=== PATIENT | male | born 1980 | race Two or more races ===

== ENCOUNTER 2017-11-02 23:52 | Inpatient (IN) | payer SELFPAY ==
[2017-11-03 00:28] LABS: ADD MAN DIFF? NO
[2017-11-03] MEDS ORDERED: CONTRAST GIVEN MC (00:30)
[2017-11-03 00:32] LABS: BASO % 0 % (0-3); EOS % 0 % (0-3); HEMATOCRIT 23.7 % (39.0-53.0); HEMOGLOBIN 8.1 g/dL (13.0-17.5); LYMPH # 1.5 x10^3/uL (1.0-4.8); LYMPH % 24 % (24-48); MEAN CORPUSCULAR HEMOGLOBIN 28 pg (25-35); MEAN CORPUSCULAR HGB CONC 34 g/dL (31-37); MEAN CORPUSCULAR VOLUME 82 fL (79-100); MONO # 0.4 x10^3/uL (0.0-1.1); MONO % 6 % (0-9); NEUT # 4.3 x10^3uL (1.8-7.7); NEUT % 69 % (31-73); PLATELET COUNT 120 x10^3/uL (140-400); RED BLOOD COUNT 2.88 x10^6/uL (4.30-5.70); RED CELL DISTRIBUTION WIDTH 14.2 % (11.5-14.5); WHITE BLOOD COUNT 6.1 x10^3/uL (4.0-11.0)
[2017-11-03 00:41] LABS: INR 1.1 (0.8-1.1); PARTIAL THROMBOPLASTIN TIME 30 SEC (24-38); PROTHROMBIN TIME PATIENT 13.2 SEC (11.7-14.0)
[2017-11-03 00:48] LABS: ANION GAP 8 (6-14); BLOOD UREA NITROGEN 18 mg/dL (8-26); BUN/CREATININE RATIO 20 (6-20); CALCIUM 7.7 mg/dL (8.5-10.1); CARBON DIOXIDE 29 mmol/L (21-32); CHLORIDE 106 mmol/L (98-107); CREATININE 0.9 mg/dL (0.7-1.3); GFR 93.9; GLUCOSE 151 mg/dL (70-99); SODIUM 143 mmol/L (136-145)
[2017-11-03] MEDS: IV NORMAL SALINE 1000ML BAG 1,000 ML IV ×4 (00:48→20:50)
[2017-11-03] MEDS: PANTOPRAZOLE IV PUSH 40 MG VIAL. IVP (00:49)
[2017-11-03] MEDS: PANTOPRAZOLE SODIUM IV DRIP 80 MG in IV NORMAL SALINE 100ML 100 ML IV ×2 (00:49→08:34)
[2017-11-03] MEDS: ONDANSETRON PF 4 MG/2 ML VIAL. IV (00:49)
[2017-11-03 00:57] LABS: ALBUMIN 2.8 g/dL (3.4-5.0); ALBUMIN/GLOBULIN RATIO 1.2 (1.0-1.7); ALK PHOS 43 U/L (46-116); ALT (SGPT) 73 U/L (16-63); AST (SGOT) 22 U/L (15-37); LIPASE 123 U/L (73-393); TOTAL BILIRUBIN 0.4 mg/dL (0.2-1.0); TOTAL PROTEIN 5.2 g/dL (6.4-8.2)
[2017-11-03 00:58] LABS: TROPONINI < 0.017 ng/mL (0.000-0.055)
[2017-11-03] MEDS: IOHEXOL 300 MG/ML 100ML VIAL. IV (01:13)
[2017-11-03 01:22] LABS: FECAL OB PT POSITIVE (NEG); NEG OBC FOB NEG; POS OBC FOB POS
[2017-11-03] MEDS ORDERED: ONDANSETRON PF 4 MG/2 ML VIAL. IV ×3 (01:45→12:45)
[2017-11-03] MEDS: OCTREOTIDE 100 MCG/ML VIAL IV (02:06)
[2017-11-03] MEDS: OCTREOTIDE 500 MCG in IV NORMAL SALINE 100ML 100 ML IV (02:08)
[2017-11-03 04:50] LABS: ADD MAN DIFF? NO
[2017-11-03 05:06] LABS: BASO % 0 % (0-3); EOS % 0 % (0-3); LYMPH # 1.3 x10^3/uL (1.0-4.8); LYMPH % 16 % (24-48); MEAN CORPUSCULAR HEMOGLOBIN 28 pg (25-35); MEAN CORPUSCULAR HGB CONC 34 g/dL (31-37); MEAN CORPUSCULAR VOLUME 83 fL (79-100); MONO # 0.4 x10^3/uL (0.0-1.1); MONO % 5 % (0-9); NEUT # 6.8 x10^3uL (1.8-7.7); NEUT % 80 % (31-73); PLATELET COUNT 103 x10^3/uL (140-400); RED BLOOD COUNT 2.42 x10^6/uL (4.30-5.70); RED CELL DISTRIBUTION WIDTH 14.6 % (11.5-14.5); WHITE BLOOD COUNT 8.6 x10^3/uL (4.0-11.0)
[2017-11-03 05:10] LABS: HEMOGLOBIN 6.9 g/dL (13.0-17.5)
[2017-11-03 07:28] LABS: IMMEDIATE SPIN CROSSMATCH 1 1
[2017-11-03 10:39] LABS: BILIRUBIN,URINE NEGATIVE (NEG); CLARITY,URINE CLEAR; COLOR,URINE YELLOW; GLUCOSE,URINE NEGATIVE (NEG); NITRITE,URINE NEGATIVE (NEG); PH,URINE 5.5; PROTEIN,URINE NEGATIVE (NEG-TRACE); UROBILINOGEN,URINE 0.2 mg/dL (0.2 mg/dL)
[2017-11-03 10:46] LABS: BACTERIA,URINE FEW /HPF (0-FEW); RBC,URINE 0 /HPF (0-2); SQUAMOUS EPITHELIAL CELL,UR OCC /LPF
[2017-11-03] MEDS ORDERED: MORPHINE SULFATE 2 MG/ML DISP.SYRIN. IV ×2 (11:15→12:45)
[2017-11-03] MEDS ORDERED: HYDROmorphone 2 MG/ML VIAL IV ×2 (11:15→12:45)
[2017-11-03] MEDS ORDERED: fentaNYL PF VIAL 100 MCG/2 ML VIAL IV ×4 (11:15→12:45)
[2017-11-03] MEDS ORDERED: PROCHLORPERAZINE 10 MG/2 ML VIAL. IV ×2 (11:15→12:45)
[2017-11-03] MEDS ORDERED: LIDOCAINE 1% PF 2 ML VIAL. ID ×2 (11:15→12:45)
[2017-11-03 11:48] LABS: ADD MAN DIFF? NO
[2017-11-03 11:52] LABS: BASO % 0 % (0-3); EOS % 1 % (0-3); HEMATOCRIT 22.2 % (39.0-53.0); HEMOGLOBIN 7.6 g/dL (13.0-17.5); LYMPH # 1.5 x10^3/uL (1.0-4.8); LYMPH % 22 % (24-48); MEAN CORPUSCULAR HEMOGLOBIN 29 pg (25-35); MEAN CORPUSCULAR HGB CONC 34 g/dL (31-37); MEAN CORPUSCULAR VOLUME 84 fL (79-100); MONO # 0.5 x10^3/uL (0.0-1.1); MONO % 7 % (0-9); NEUT # 4.8 x10^3uL (1.8-7.7); NEUT % 70 % (31-73); PLATELET COUNT 88 x10^3/uL (140-400); RED BLOOD COUNT 2.65 x10^6/uL (4.30-5.70); RED CELL DISTRIBUTION WIDTH 14.6 % (11.5-14.5); WHITE BLOOD COUNT 6.8 x10^3/uL (4.0-11.0)
[2017-11-03] MEDS: IV RINGERS,LACTATED 1000ML 1,000 ML IV ×2 (12:41→13:06)
[2017-11-03] MEDS ORDERED: MIDAZOLAM HCL/PF 5 MG/5 ML VIAL. (12:50)
[2017-11-03] MEDS ORDERED: PROPOFOL 20 ML IV ×2 (12:50→12:59)
[2017-11-03] MEDS ORDERED: LIDOCAINE 2% PF Vial for OR 5 ML VIAL. (12:50)
[2017-11-03] MEDS: METOCLOPRAMIDE HCL 10 MG/2 ML VIAL. IV ×2 (16:51→17:00)
[2017-11-03] MEDS: PANTOPRAZOLE 40 MG TABLET.DR. PO (17:27)
[2017-11-03 18:27] LABS: ADD MAN DIFF? NO
[2017-11-03 18:29] LABS: BASO % 0 % (0-3); EOS % 1 % (0-3); HEMATOCRIT 22.7 % (39.0-53.0); HEMOGLOBIN 7.8 g/dL (13.0-17.5); LYMPH # 1.4 x10^3/uL (1.0-4.8); LYMPH % 22 % (24-48); MEAN CORPUSCULAR HEMOGLOBIN 29 pg (25-35); MEAN CORPUSCULAR HGB CONC 34 g/dL (31-37); MEAN CORPUSCULAR VOLUME 84 fL (79-100); MONO # 0.6 x10^3/uL (0.0-1.1); MONO % 9 % (0-9); NEUT # 4.5 x10^3uL (1.8-7.7); NEUT % 69 % (31-73); PLATELET COUNT 91 x10^3/uL (140-400); RED BLOOD COUNT 2.72 x10^6/uL (4.30-5.70); WHITE BLOOD COUNT 6.6 x10^3/uL (4.0-11.0)
[2017-11-03] MEDS: MORPHINE SULFATE 2 MG/ML DISP.SYRIN. IV ×2 (19:26→22:06)
[2017-11-04 06:05] LABS: ADD MAN DIFF? NO
[2017-11-04 06:22] LABS: BASO % 0 % (0-3); EOS % 1 % (0-3); HEMATOCRIT 21.5 % (39.0-53.0); HEMOGLOBIN 7.2 g/dL (13.0-17.5); LYMPH # 1.1 x10^3/uL (1.0-4.8); LYMPH % 25 % (24-48); MEAN CORPUSCULAR HEMOGLOBIN 28 pg (25-35); MEAN CORPUSCULAR HGB CONC 34 g/dL (31-37); MEAN CORPUSCULAR VOLUME 84 fL (79-100); MONO # 0.4 x10^3/uL (0.0-1.1); MONO % 9 % (0-9); NEUT # 2.8 x10^3uL (1.8-7.7); NEUT % 66 % (31-73); PLATELET COUNT 86 x10^3/uL (140-400); RED BLOOD COUNT 2.57 x10^6/uL (4.30-5.70); RED CELL DISTRIBUTION WIDTH 14.9 % (11.5-14.5); WHITE BLOOD COUNT 4.3 x10^3/uL (4.0-11.0)
[2017-11-04 06:24] LABS: ANION GAP 3 (6-14); BLOOD UREA NITROGEN 14 mg/dL (8-26); CARBON DIOXIDE 31 mmol/L (21-32); CHLORIDE 110 mmol/L (98-107); CREATININE 0.8 mg/dL (0.7-1.3); GFR 107.6; GLUCOSE 97 mg/dL (70-99); POTASSIUM 3.5 mmol/L (3.5-5.1); SODIUM 144 mmol/L (136-145)
[2017-11-04] MEDS: PANTOPRAZOLE 40 MG TABLET.DR. PO (07:40)
[2017-11-04] MEDS: FLU VACC QS2017-18 (36MOS+)/PF 0.5 ML SYRINGE. VAX IM (11:00)
[2017-11-04 11:59] LABS: ADD MAN DIFF? NO
[2017-11-04 12:02] LABS: BASO % 0 % (0-3); EOS % 0 % (0-3); HEMATOCRIT 24.5 % (39.0-53.0); HEMOGLOBIN 8.2 g/dL (13.0-17.5); LYMPH # 1.1 x10^3/uL (1.0-4.8); LYMPH % 23 % (24-48); MEAN CORPUSCULAR HEMOGLOBIN 28 pg (25-35); MEAN CORPUSCULAR HGB CONC 34 g/dL (31-37); MEAN CORPUSCULAR VOLUME 83 fL (79-100); MONO # 0.3 x10^3/uL (0.0-1.1); MONO % 6 % (0-9); NEUT # 3.5 x10^3uL (1.8-7.7); NEUT % 71 % (31-73); PLATELET COUNT 98 x10^3/uL (140-400); RED BLOOD COUNT 2.94 x10^6/uL (4.30-5.70); RED CELL DISTRIBUTION WIDTH 14.8 % (11.5-14.5); WHITE BLOOD COUNT 4.9 x10^3/uL (4.0-11.0)
[2017-11-04 16:15] LABS: MRSA BY PCR Negative (Negative)
[2017-11-04] MEDS: ACETAMINOPHEN 325 MG TABLET. PO ×2 (17:13→23:48)
[2017-11-04 18:54] LABS: ADD MAN DIFF? NO
[2017-11-04 18:56] LABS: BASO % 0 % (0-3); EOS % 1 % (0-3); HEMATOCRIT 21.9 % (39.0-53.0); HEMOGLOBIN 7.6 g/dL (13.0-17.5); LYMPH # 1.2 x10^3/uL (1.0-4.8); LYMPH % 30 % (24-48); MEAN CORPUSCULAR HEMOGLOBIN 29 pg (25-35); MEAN CORPUSCULAR HGB CONC 35 g/dL (31-37); MEAN CORPUSCULAR VOLUME 85 fL (79-100); MONO # 0.3 x10^3/uL (0.0-1.1); MONO % 8 % (0-9); NEUT # 2.4 x10^3uL (1.8-7.7); NEUT % 61 % (31-73); PLATELET COUNT 102 x10^3/uL (140-400); RED BLOOD COUNT 2.59 x10^6/uL (4.30-5.70); RED CELL DISTRIBUTION WIDTH 14.9 % (11.5-14.5); WHITE BLOOD COUNT 3.9 x10^3/uL (4.0-11.0)
[2017-11-05 05:20] LABS: ADD MAN DIFF? NO
[2017-11-05 05:41] LABS: ANION GAP 8 (6-14); BLOOD UREA NITROGEN 13 mg/dL (8-26); CALCIUM 7.8 mg/dL (8.5-10.1); CARBON DIOXIDE 29 mmol/L (21-32); CHLORIDE 108 mmol/L (98-107); CREATININE 0.9 mg/dL (0.7-1.3); GFR 93.9; GLUCOSE 155 mg/dL (70-99); POTASSIUM 3.1 mmol/L (3.5-5.1); SODIUM 145 mmol/L (136-145)
[2017-11-05 05:43] LABS: BASO % 0 % (0-3); EOS % 1 % (0-3); HEMATOCRIT 21.6 % (39.0-53.0); HEMOGLOBIN 7.4 g/dL (13.0-17.5); LYMPH % 31 % (24-48); MEAN CORPUSCULAR HEMOGLOBIN 29 pg (25-35); MEAN CORPUSCULAR HGB CONC 34 g/dL (31-37); MEAN CORPUSCULAR VOLUME 84 fL (79-100); MONO # 0.2 x10^3/uL (0.0-1.1); MONO % 7 % (0-9); NEUT # 1.9 x10^3uL (1.8-7.7); NEUT % 60 % (31-73); PLATELET COUNT 95 x10^3/uL (140-400); RED BLOOD COUNT 2.56 x10^6/uL (4.30-5.70); WHITE BLOOD COUNT 3.1 x10^3/uL (4.0-11.0)
[2017-11-05] MEDS: PANTOPRAZOLE 40 MG TABLET.DR. PO (09:38)
[2017-11-06] MEDS: ACETAMINOPHEN 325 MG TABLET. PO (08:25)
[2017-11-06] MEDS: PANTOPRAZOLE 40 MG TABLET.DR. PO (08:25)
[2017-11-06] MEDS: FERROUS SULFATE ORAL 300 MG/5 ML SOLUTION. PO (17:00)
== END 2017-11-06 19:15 | disposition home or self-care (01) | DRG 391 ==
LOC: ER 23:52 → 6 SOUTH 11-04 16:49 → ED HOLD 11-03 01:13 → 1 WEST ICU 11-03 20:51
PROC: 0DB98ZX Excision of Duodenum, Via Natural or Artificial Opening Endoscopic, Diagnostic (ICD-10-PCS; principal; 2017-11-03 13:00)
PROC: 30233N1 Transfusion of Nonautologous Red Blood Cells into Peripheral Vein, Percutaneous Approach (ICD-10-PCS; 2017-11-03 13:13)
DX: K52.9 Noninfective gastroenteritis and colitis, unspecified (principal); K29.81 Duodenitis with bleeding; K28.4 Chronic or unspecified gastrojejunal ulcer with hemorrhage; D64.9 Anemia, unspecified; E78.5 Hyperlipidemia, unspecified; M43.16 Spondylolisthesis, lumbar region; Z83.3 Family history of diabetes mellitus; Z88.8 Allergy status to other drugs, medicaments and biological substances
CPT/HCPCS: 36415; 74177; 78278; 78290; 80048; 80053; 81001; 82274; 83690; 84484; 85025; 85610; 85730; 86850; 86900; 86901; 86920; 87641; 88305; 93005; 96374; 99291; 99291-25; A9512; A9560; C9113; J2250; J2270; J2354; J2405; J2704; J2765; J7030; J7120; P9016; Q9967

== ENCOUNTER 2017-11-28 13:16 | Emergency (ER) | payer SELFPAY ==
[2017-11-28 14:20] LABS: BILIRUBIN,URINE NEGATIVE (NEG); CLARITY,URINE CLEAR; COLOR,URINE YELLOW; GLUCOSE,URINE NEGATIVE (NEG); NITRITE,URINE NEGATIVE (NEG); PROTEIN,URINE NEGATIVE (NEG-TRACE); UROBILINOGEN,URINE 0.2 mg/dL (0.2 mg/dL)
[2017-11-28] MEDS: IV NORMAL SALINE 1000ML BAG 1,000 ML IV ×2 (14:23)
[2017-11-28] MEDS: ASPIRIN CHEWABLE 81 MG TABLET. PO ×2 (14:23)
[2017-11-28] MEDS: fentaNYL PF VIAL 100 MCG/2 ML VIAL IV ×2 (14:23)
[2017-11-28 14:34] LABS: ADD MAN DIFF? NO
[2017-11-28 14:36] LABS: BASO % 0 % (0-3); EOS % 0 % (0-3); HEMATOCRIT 30.2 % (39.0-53.0); HEMOGLOBIN 9.7 g/dL (13.0-17.5); LYMPH # 0.7 x10^3/uL (1.0-4.8); LYMPH % 18 % (24-48); MEAN CORPUSCULAR HEMOGLOBIN 26 pg (25-35); MEAN CORPUSCULAR HGB CONC 32 g/dL (31-37); MEAN CORPUSCULAR VOLUME 82 fL (79-100); MONO # 0.3 x10^3/uL (0.0-1.1); MONO % 9 % (0-9); NEUT # 2.7 x10^3uL (1.8-7.7); NEUT % 73 % (31-73); PLATELET COUNT 145 x10^3/uL (140-400); RED BLOOD COUNT 3.68 x10^6/uL (4.30-5.70); RED CELL DISTRIBUTION WIDTH 14.3 % (11.5-14.5); WHITE BLOOD COUNT 3.7 x10^3/uL (4.0-11.0)
[2017-11-28 14:37] LABS: BACTERIA,URINE 0 /HPF (0-FEW); RBC,URINE 0 /HPF (0-2); SQUAMOUS EPITHELIAL CELL,UR FEW /LPF; WBC,URINE OCC /HPF (0-4)
[2017-11-28 14:48] LABS: D-DIMER < 0.27 ug/mlFEU (0.00-0.50)
[2017-11-28 14:51] LABS: ANION GAP 7 (6-14); BLOOD UREA NITROGEN 11 mg/dL (8-26); BUN/CREATININE RATIO 14 (6-20); CALCIUM 9.1 mg/dL (8.5-10.1); CARBON DIOXIDE 30 mmol/L (21-32); CHLORIDE 105 mmol/L (98-107); CREATININE 0.8 mg/dL (0.7-1.3); GFR 107.6; GLUCOSE 101 mg/dL (70-99); POTASSIUM 3.7 mmol/L (3.5-5.1); SODIUM 142 mmol/L (136-145)
[2017-11-28 14:56] LABS: ALBUMIN 3.4 g/dL (3.4-5.0); ALK PHOS 63 U/L (46-116); ALT (SGPT) 99 U/L (16-63); AST (SGOT) 36 U/L (15-37); LIPASE 136 U/L (73-393); MAGNESIUM 2.1 mg/dL (1.8-2.4); TOTAL BILIRUBIN 0.8 mg/dL (0.2-1.0); TOTAL PROTEIN 6.8 g/dL (6.4-8.2)
[2017-11-28 15:00] LABS: TROPONINI < 0.017 ng/mL (0.000-0.055)
[2017-11-28 15:05] LABS: INFLUENZA A PATIENT NEGATIVE (NEGATIVE); INFLUENZA B PATIENT NEGATIVE (NEGATIVE); OBC FLU VALID
[2017-11-28 15:07] LABS: CKMB MASS < 0.5 ng/mL (0.0-3.6); CREATINE KINASE 65 U/L (39-308)
[2017-11-28 15:07] LABS: NT-PRO BNP 22 pg/mL (0-124)
== END 2017-11-28 16:40 | disposition home or self-care (01) ==
LOC: ER 13:16
DX: R07.89 Other chest pain (principal); D50.0 Iron deficiency anemia secondary to blood loss (chronic); R06.02 Shortness of breath; R20.0 Anesthesia of skin; Z88.1 Allergy status to other antibiotic agents
CPT/HCPCS: 36415; 71046; 80053; 81001; 82553; 83690; 83735; 83880; 84484; 85025; 85379; 87804; 87804-59; 93005; 96361; 96374; 99285-25; J3010; J7030

== ENCOUNTER 2018-12-13 15:29 | Inpatient (IN) | payer SELFPAY ==
[~2018-12-13] VITALS: Ht 167.6 cm; Wt 71.3 kg
[~2018-12-13 15:29] MED LIST: ACET325T9 PO; FERR325T14 PO; MULT1TAB52 PO; PANT40TA3 PO
[2018-12-13 16:49] LABS: BASO % 0 % (0-3); EOS % 1 % (0-3); HEMATOCRIT 41.8 % (39.0-53.0); HEMOGLOBIN 14.5 g/dL (13.0-17.5); LYMPH # 1.4 x10^3/uL (1.0-4.8); LYMPH % 26 % (24-48); MEAN CORPUSCULAR HEMOGLOBIN 30 pg (25-35); MEAN CORPUSCULAR HGB CONC 35 g/dL (31-37); MEAN CORPUSCULAR VOLUME 85 fL (79-100); MONO # 0.4 x10^3/uL (0.0-1.1); MONO % 8 % (0-9); NEUT # 3.5 x10^3uL (1.8-7.7); NEUT % 65 % (31-73); PLATELET COUNT 124 x10^3/uL (140-400); RED BLOOD COUNT 4.91 x10^6/uL (4.30-5.70); RED CELL DISTRIBUTION WIDTH 13.2 % (11.5-14.5); WHITE BLOOD COUNT 5.4 x10^3/uL (4.0-11.0)
[2018-12-13 16:59] LABS: PROTHROMBIN TIME PATIENT 13.7 SEC (11.7-14.0)
[2018-12-13 17:06] LABS: CALCIUM 8.3 mg/dL (8.5-10.1); GFR 82.8
[2018-12-13 17:11] LABS: ALBUMIN 3.3 g/dL (3.4-5.0); TOTAL BILIRUBIN 1.2 mg/dL (0.2-1.0); TOTAL PROTEIN 6.6 g/dL (6.4-8.2)
[2018-12-13 17:14] LABS: FECAL OB PT POSITIVE (NEG)
[2018-12-13] MEDS ORDERED: IOHEXOL 300 MG/ML 100ML VIAL. IV ONE (17:45)
[2018-12-13] MEDS ORDERED: CONTRAST GIVEN. MC PRN (18:00)
--- NOTE | 2018-12-13 18:49 | PHYS DOC ---
Past Medical History Past Medical History: Anemia, GERD, GI Bleed Past Surgical History: Other Additional Past Surgical Histo: COLONOSCOPY Alcohol Use: Sober Drug Use: None Adult General Chief Complaint Chief Complaint: RECTAL BLEED HPI HPI Patient is a 38 year old MALE presented to the ER today for evaluation of lower abdominal pain with rectal bleeding off and on since yesterday. Patient denied any fever, no nausea, or vomiting. Patient is not on any blood thinner. Review of Systems Review of Systems Constitutional: Denies fever or chills [] Eyes: Denies change in visual acuity, redness, or eye pain [] HENT: Denies nasal congestion or sore throat [] Respiratory: Denies cough or shortness of breath [] Cardiovascular: No additional information not addressed in HPI [] GI: Positive for abdominal pain and rectal bleeding. NO nausea, vomiting, bloody stools or diarrhea [] : Denies dysuria or hematuria [] Musculoskeletal: Denies back pain or joint pain [] Integument: Denies rash or skin lesions [] Neurologic: Denies headache, focal weakness or sensory changes [] Endocrine: Denies polyuria or polydipsia [] All other systems were reviewed and found to be within normal limits, except as documented in this note. Current Medications Current Medications Current Medications Medications (Trade) Dose Ordered Sig/Fahad Start Time Stop Time Status Last Admin Dose Admin Info (CONTRAST GIVEN -- Rx MONITORING) 1 each PRN DAILY PRN 12/13/18 18:00 12/15/18 17:59 Iohexol (Omnipaque 300 Mg/ml) 75 ml 1X ONCE 12/13/18 17:45 12/13/18 17:46 DC 12/13/18 18:17 75 ML Allergies Allergies Allergies Coded Allergies Type Severity Reaction Last Updated Verified ciprofloxacin Allergy Intermediate 11/06/17 Yes Physical Exam Physical Exam Constitutional: Well developed, well nourished, no acute distress, non-toxic appearance. [] HENT: Normocephalic, atraumatic, bilateral external ears normal, oropharynx moist, no oral exudates, nose normal. [] Eyes: PERRLA, EOMI, conjunctiva normal, no discharge. [] Neck: Normal range of motion, no tenderness, supple, no stridor. [] Cardiovascular:Heart rate regular rhythm, no murmur [] Lungs & Thorax: Bilateral breath sounds clear to auscultation [] Abdomen: Bowel sounds normal, soft, There is tenderness to palpation in suprapubic area, no masses, no pulsatile masses. RECTAL EXAM: NO EXTERNAL OR INTERNAL HEMORRHOIDS APPRECIATED, GROSS BLOOD PRESENT AT FINGER TIP ON DIGITAL EXAM. Skin: Warm, dry, no erythema, no rash. [] Back: No tenderness, no CVA tenderness. [] Extremities: No tenderness, no cyanosis, no clubbing, ROM intact, no edema. [] Neurologic: Alert and oriented X 3, normal motor function, normal sensory function, no focal deficits noted. [] Psychologic: Affect normal, judgement normal, mood normal. [] Current Patient Data Vital Signs Vital Signs Date Time Temp Pulse Resp B/P (MAP) Pulse Ox O2 Delivery O2 Flow Rate FiO2 12/13/18 17:30 68 18 109/69 (82) 97 Room Air 12/13/18 16:00 98.8 98.8 Lab Values Laboratory Tests Test 12/13/18 16:35 12/13/18 17:00 White Blood Count 5.4 x10^3/uL (4.0-11.0) Red Blood Count 4.91 x10^6/uL (4.30-5.70) Hemoglobin 14.5 g/dL (13.0-17.5) Hematocrit 41.8 % (39.0-53.0) Mean Corpuscular Volume 85 fL (79-100) Mean Corpuscular Hemoglobin 30 pg (25-35) Mean Corpuscular Hemoglobin Concent 35 g/dL (31-37) Red Cell Distribution Width 13.2 % (11.5-14.5) Platelet Count 124 x10^3/uL (140-400) L Neutrophils (%) (Auto) 65 % (31-73) Lymphocytes (%) (Auto) 26 % (24-48) Monocytes (%) (Auto) 8 % (0-9) Eosinophils (%) (Auto) 1 % (0-3) Basophils (%) (Auto) 0 % (0-3) Neutrophils # (Auto) 3.5 x10^3uL (1.8-7.7) Lymphocytes # (Auto) 1.4 x10^3/uL (1.0-4.8) Monocytes # (Auto) 0.4 x10^3/uL (0.0-1.1) Eosinophils # (Auto) 0.0 x10^3/uL (0.0-0.7) Basophils # (Auto) 0.0 x10^3/uL (0.0-0.2) Prothrombin Time 13.7 SEC (11.7-14.0) Prothrombin Time INR 1.1 (0.8-1.1) PTT 33 SEC (24-38) Sodium Level 141 mmol/L (136-145) Potassium Level 4.0 mmol/L (3.5-5.1) Chloride Level 103 mmol/L (98-107) Carbon Dioxide Level 30 mmol/L (21-32) Anion Gap 8 (6-14) Blood Urea Nitrogen 16 mg/dL (8-26) Creatinine 1.0 mg/dL (0.7-1.3) Estimated GFR (Cockcroft-Gault) 82.8 BUN/Creatinine Ratio 16 (6-20) Glucose Level 106 mg/dL (70-99) H Calcium Level 8.3 mg/dL (8.5-10.1) L Total Bilirubin 1.2 mg/dL (0.2-1.0) H Aspartate Amino Transferase (AST) 16 U/L (15-37) Alanine Aminotransferase (ALT) 37 U/L (16-63) Alkaline Phosphatase 59 U/L (46-116) Total Protein 6.6 g/dL (6.4-8.2) Albumin 3.3 g/dL (3.4-5.0) L Albumin/Globulin Ratio 1.0 (1.0-1.7) Stool Occult Blood Positive (NEG) Laboratory Tests 12/13/18 16:35 Laboratory Tests 12/13/18 16:35 EKG EKG [] Radiology/Procedures Radiology/Procedures [][facility] [address] [place], [place] [id number] IMAGING REPORT Signed PATIENT: LAKHWINDER MOSQUERA ACCOUNT: [id number] : 1980 LOCATION: ER AGE: 38 SEX: M EXAM STATUS: REG ER ORD. PHYSICIAN: AYLIN SAEZ DO REASON: ABDOMINAL PAIN, OMNI 300, 75ml PROCEDURE: CT ABD PELV W/ IV CONTRST ONLY CT abdomen and pelvis with contrast 12/13/2018 Clinical indication: Abdominal pain. COMPARISON: CT abdomen pelvis 11/03/2017. TECHNIQUE: Multiple CT images of the abdomen and pelvis were obtained following the intravenous administration of 75 mL Omnipaque 300. *One or more of the following individualized dose reduction techniques were utilized for this examination: 1. Automated exposure control. 2. Adjustment of the mA and/or kV according to patient size. 3. Use of iterative reconstruction technique. FINDINGS: Heart size is normal. There is a stable 0.3 cm noncalcified pulmonary nodule in the posterior right lung base series 2/image 7. Tiny, 0.3 cm noncalcified pulmonary nodule in the left lung base series 2/image 11. Liver, gallbladder, spleen, adrenal glands, pancreas, and kidneys are unremarkable. Abdominal aorta normal in caliber. Major portal veins are patent. No retroperitoneal or mesenteric lymphadenopathy. There is mild sequential thickening of the duodenal with no adjacent stranding. Small and large bowel loops are normal in caliber without obstruction. Appendix is normal in appearance. Mild fecalized contents in the mid and distal small bowel loops without focal dilatation or mesenteric leaflet edema. Urinary bladder, prostate and seminal vesicles are unremarkable. No iliac or inguinal lymphadenopathy. Bilateral L5 spondylolysis and grade 1 anterolisthesis. IMPRESSION: 1. Mild duodenal mural thickening without adjacent stranding, indeterminate between pseudothickening from incomplete distention versus nonspecific duodenitis. 2. Fecalized contents of the mid to distal small bowel loops, may represent delayed transit. 3. Two subcentimeter noncalcified pulmonary nodules in the lung bases. In a low-risk patient, no additional follow-up is necessary. In a high-risk patient. Follow-up CT chest is recommended. Electronically signed by: Reyna Pace MD (12/13/2018 6:54 PM) [facility] DICTATED and SIGNED BY: REYNA PACE MD DATE: 12/13/18 526 Course & Med Decision Making Course & Med Decision Making Pertinent Labs and Imaging studies reviewed. (See chart for details) [] Dragon Disclaimer Dragluis daniel Disclaimer This electronic medical record was generated, in whole or in part, using a voice recognition dictation system. Departure Departure Impression: Primary Impression: Rectal bleeding Disposition: ADMITTED INPATIENT Admitting Physician: Addis Elizabeth Condition: STABLE Referrals: NO PCP (PCP) SAEZ,PETER T DO Dec 13, 2018 18:49
--- NOTE | 2018-12-13 18:57 | RAD ---
CT abdomen and pelvis with contrast 12/13/2018 Clinical indication: Abdominal pain. COMPARISON: CT abdomen pelvis 11/03/2017. TECHNIQUE: Multiple CT images of the abdomen and pelvis were obtained following the intravenous administration of 75 mL Omnipaque 300. *One or more of the following individualized dose reduction techniques were utilized for this examination: 1. Automated exposure control. 2. Adjustment of the mA and/or kV according to patient size. 3. Use of iterative reconstruction technique. FINDINGS: Heart size is normal. There is a stable 0.3 cm noncalcified pulmonary nodule in the posterior right lung base series 2/image 7. Tiny, 0.3 cm noncalcified pulmonary nodule in the left lung base series 2/image 11. Liver, gallbladder, spleen, adrenal glands, pancreas, and kidneys are unremarkable. Abdominal aorta normal in caliber. Major portal veins are patent. No retroperitoneal or mesenteric lymphadenopathy. There is mild sequential thickening of the duodenal with no adjacent stranding. Small and large bowel loops are normal in caliber without obstruction. Appendix is normal in appearance. Mild fecalized contents in the mid and distal small bowel loops without focal dilatation or mesenteric leaflet edema. Urinary bladder, prostate and seminal vesicles are unremarkable. No iliac or inguinal lymphadenopathy. Bilateral L5 spondylolysis and grade 1 anterolisthesis. IMPRESSION: 1. Mild duodenal mural thickening without adjacent stranding, indeterminate between pseudothickening from incomplete distention versus nonspecific duodenitis. 2. Fecalized contents of the mid to distal small bowel loops, may represent delayed transit. 3. Two subcentimeter noncalcified pulmonary nodules in the lung bases. In a low-risk patient, no additional follow-up is necessary. In a high-risk patient. Follow-up CT chest is recommended. Electronically signed by: Radhames Pace MD (12/13/2018 6:54 PM) [facility]
[2018-12-13] MEDS ORDERED: ONDANSETRON PF 4 MG/2 ML VIAL. IV PRN (19:15)
[2018-12-13 21:00] VITALS: BP 127/81
[2018-12-13] MEDS ORDERED: CIPROFLOXACIN HCL 250 MG TABLET. PO SCH (21:00)
--- NOTE | 2018-12-13 21:00 | NUR ---
The patient, LAKHWINDER MOSQUERA, 38 y/o, M admitted by FOREIGN DESAI MD, was given written information regarding hospital policies, unit procedures and contact persons; pt arrived to unit from ED via WC. Pt's primary language Ecuadorean, the blue language line was offered but pt declined and preferred family to help interpret. Pt admission assessment complete, admit packet reviewed, and plan of care discussed. Upon admission, pt's VSS, allergies verified, and valuables were checked and left in room with pt. Pt in bed, call light within reach and family at bedside, will continue to monitor.
--- NOTE | 2018-12-13 21:37 | PDOC1 ---
History and Physical Date of Admission Date of Admission DATE: 12/13/18 TIME: 21:33 History of Present Illness History of Present Illness Mr. Castro, is a 38 year old MALE, armenian speaking only admit for acutely worsening abdominal pain, and new blood per rectum no priro abd problems, no sick contacts, no travel, no meds, no hospitalization he works construction, with concrete. his stool has been brown with bright red in it. Past Medical History Cardiovascular: No pertinent hx Pulmonary: No pertinent hx GI: No pertinent hx Past Surgical History Past Surgical History: No pertinent history Family History Family History: No Significant Social History Smoke: No ALCOHOL: other Drugs: None Current Problem List Problem List Problems Medical Problems: (1) Rectal bleeding Status: Acute Current Medications Current Medications Current Medications Iohexol (Omnipaque 300 Mg/ml) 75 ml 1X ONCE IV Last administered on 12/13/18at 18:17; Start 12/13/18 at 17:45; Stop 12/13/18 at 17:46; Status DC Info (CONTRAST GIVEN -- Rx MONITORING) 1 each PRN DAILY PRN MC SEE COMMENTS; Start 12/13/18 at 18:00; Stop 12/15/18 at 17:59 Ondansetron HCl (Zofran) 4 mg PRN Q8HRS PRN IV NAUSEA/VOMITING; Start 12/13/18 at 19:15; Stop 12/14/18 at 19:14 Sodium Chloride 1,000 ml @ 75 mls/hr [id number] IV ; Start 12/13/18 at 19:08; Stop 12/14/18 at 19:07 Metronidazole (Flagyl) 500 mg Q8HRS PO ; Start 12/14/18 at 06:00 Metronidazole 100 ml @ 100 mls/hr 1X ONCE IV ; Start 12/13/18 at 21:00; Stop 12/13/18 at 21:59 Ciprofloxacin (Cipro) 500 mg BID PO ; Start 12/13/18 at 21:00; Stop 12/13/18 at 21:13; Status DC Active Scripts Active Multivitamins (Multivitamin) 1 Each Tablet 1 Tab PO DAILY Tylenol (Acetaminophen) 325 Mg Tablet 1-2 Tab PO Q4-6HRS PRN Reported Ferrous Sulfate 325 Mg Tablet 65 Mg PO DAILY Protonix (Pantoprazole Sodium) 40 Mg Tablet.dr 1 Tab PO DAILY Allergies Allergies: Coded Allergies: ciprofloxacin (Verified Allergy, Intermediate, 11/06/17) ROS General: No: Chills, Night Sweats, Fatigue, Malaise, Appetite, Other PSYCHOLOGICAL ROS: No: Anxiety, Behavioral Disorder, Concentration difficultie , Decreased libido, Depression, Disorientation, Hallucinations, Hostility, Irritablity, Memory difficulties, Mood Swings, Obsessive thoughts, Physical abuse, Sexual abuse, Sleep disturbances, Suicidal ideation, Other Eyes: No Blurry vision, No Decreased vision, No Double vision, No Dry eyes, No Excessive tearing, No Eye Pain, No Itchy Eyes, No Loss of vision, No Photophobia , No Scotomata, No Uses contacts, No Uses glasses, No Other HEENT: No: Heacaches, Visual Changes, Hearing change, Nasal congestion, Nasal discharge, Oral lesions, Sinus pain, Sore Throat, Epistaxis, Sneezing, Snoring, Tinnitus, Vertigo, Vocal changes, Other Respiratory: No: Cough, Hemoptysis, Orthopnea, Pleuritic Pain, Shortness of breath, SOB with excertion, Sputum Changes, Stridor, Tachypnea, Wheezing, Other Cardiovascular: No Chest Pain, No Palpitations, No Orthopnea, No Paroxysmal Noc. Dyspnea, No Edema, No Lt Headedness, No Other Gastrointestinal: Yes Nausea, Yes Abdominal Pain, Yes Diarrhea, Yes Hematochezia; No Constipation, No Melena, No Other Genitourinary: No Dysuria, No Frequency, No Incontinence, No Hematuria, No Retention, No Discharge, No Urgency, No Pain, No Flank Pain, No Other, No , No , No , No , No , No , No Musculoskeletal: No Gait Disturbance, No Joint Pain, No Joint Stiffness, No Joint Swelling, No Muscle Pain, No Muscular Weakness, No Pain In:, No Swelling In:, No Other Neurological: No Behavorial Changes, No Bowel/Bladder ControlChng, No Confusion , No Dizziness, No Gait Disturbance, No Headaches, No Impaired Coord/balance, No Memory Loss, No Numbness/Tingling, No Seizures, No Speech Problems, No Tremors, No Visual Changes, No Weakness, No Other Skin: No Dry Skin, No Eczema, No Hair Changes, No Lumps, No Mole Changes, No Mottling, No Nail Changes, No Pruritus, No Rash, No Skin Lesion Changes, No Other, No Acne Physical Exam General: Alert, Oriented X3, Cooperative, mild distress HEENT: Atraumatic, PERRLA Lungs: Clear to auscultation Heart: S1S2 Abdomen: Normal bowel sounds, Soft (mild tender, no guarding, no rebound) Rectal Exam: not examined Extremities: No clubbing, No edema Skin: No rashes, No breakdown, No significant lesion Neuro: Normal speech, Normal tone, Cranial nerves 3-12 NL Psych/Mental Status: Mood NL Vitals Vitals Vital Signs Date Time Temp Pulse Resp B/P (MAP) Pulse Ox O2 Delivery O2 Flow Rate FiO2 12/13/18 19:30 70 16 121/78 (92) 98 Room Air 12/13/18 16:00 98.8 98.8 Labs Labs Laboratory Tests Test 12/13/18 16:35 12/13/18 17:00 White Blood Count 5.4 x10^3/uL (4.0-11.0) Red Blood Count 4.91 x10^6/uL (4.30-5.70) Hemoglobin 14.5 g/dL (13.0-17.5) Hematocrit 41.8 % (39.0-53.0) Mean Corpuscular Volume 85 fL (79-100) Mean Corpuscular Hemoglobin 30 pg (25-35) Mean Corpuscular Hemoglobin Concent 35 g/dL (31-37) Red Cell Distribution Width 13.2 % (11.5-14.5) Platelet Count 124 x10^3/uL (140-400) Neutrophils (%) (Auto) 65 % (31-73) Lymphocytes (%) (Auto) 26 % (24-48) Monocytes (%) (Auto) 8 % (0-9) Eosinophils (%) (Auto) 1 % (0-3) Basophils (%) (Auto) 0 % (0-3) Neutrophils # (Auto) 3.5 x10^3uL (1.8-7.7) Lymphocytes # (Auto) 1.4 x10^3/uL (1.0-4.8) Monocytes # (Auto) 0.4 x10^3/uL (0.0-1.1) Eosinophils # (Auto) 0.0 x10^3/uL (0.0-0.7) Basophils # (Auto) 0.0 x10^3/uL (0.0-0.2) Prothrombin Time 13.7 SEC (11.7-14.0) Prothromb Time International Ratio 1.1 (0.8-1.1) Activated Partial Thromboplast Time 33 SEC (24-38) Sodium Level 141 mmol/L (136-145) Potassium Level 4.0 mmol/L (3.5-5.1) Chloride Level 103 mmol/L (98-107) Carbon Dioxide Level 30 mmol/L (21-32) Anion Gap 8 (6-14) Blood Urea Nitrogen 16 mg/dL (8-26) Creatinine 1.0 mg/dL (0.7-1.3) Estimated GFR (Cockcroft-Gault) 82.8 BUN/Creatinine Ratio 16 (6-20) Glucose Level 106 mg/dL (70-99) Calcium Level 8.3 mg/dL (8.5-10.1) Total Bilirubin 1.2 mg/dL (0.2-1.0) Aspartate Amino Transf (AST/SGOT) 16 U/L (15-37) Alanine Aminotransferase (ALT/SGPT) 37 U/L (16-63) Alkaline Phosphatase 59 U/L (46-116) Total Protein 6.6 g/dL (6.4-8.2) Albumin 3.3 g/dL (3.4-5.0) Albumin/Globulin Ratio 1.0 (1.0-1.7) Stool Occult Blood Positive (NEG) Laboratory Tests Test 12/13/18 16:35 12/13/18 17:00 White Blood Count 5.4 x10^3/uL (4.0-11.0) Red Blood Count 4.91 x10^6/uL (4.30-5.70) Hemoglobin 14.5 g/dL (13.0-17.5) Hematocrit 41.8 % (39.0-53.0) Mean Corpuscular Volume 85 fL (79-100) Mean Corpuscular Hemoglobin 30 pg (25-35) Mean Corpuscular Hemoglobin Concent 35 g/dL (31-37) Red Cell Distribution Width 13.2 % (11.5-14.5) Platelet Count 124 x10^3/uL (140-400) Neutrophils (%) (Auto) 65 % (31-73) Lymphocytes (%) (Auto) 26 % (24-48) Monocytes (%) (Auto) 8 % (0-9) Eosinophils (%) (Auto) 1 % (0-3) Basophils (%) (Auto) 0 % (0-3) Neutrophils # (Auto) 3.5 x10^3uL (1.8-7.7) Lymphocytes # (Auto) 1.4 x10^3/uL (1.0-4.8) Monocytes # (Auto) 0.4 x10^3/uL (0.0-1.1) Eosinophils # (Auto) 0.0 x10^3/uL (0.0-0.7) Basophils # (Auto) 0.0 x10^3/uL (0.0-0.2) Prothrombin Time 13.7 SEC (11.7-14.0) Prothromb Time International Ratio 1.1 (0.8-1.1) Activated Partial Thromboplast Time 33 SEC (24-38) Sodium Level 141 mmol/L (136-145) Potassium Level 4.0 mmol/L (3.5-5.1) Chloride Level 103 mmol/L (98-107) Carbon Dioxide Level 30 mmol/L (21-32) Anion Gap 8 (6-14) Blood Urea Nitrogen 16 mg/dL (8-26) Creatinine 1.0 mg/dL (0.7-1.3) Estimated GFR (Cockcroft-Gault) 82.8 BUN/Creatinine Ratio 16 (6-20) Glucose Level 106 mg/dL (70-99) Calcium Level 8.3 mg/dL (8.5-10.1) Total Bilirubin 1.2 mg/dL (0.2-1.0) Aspartate Amino Transf (AST/SGOT) 16 U/L (15-37) Alanine Aminotransferase (ALT/SGPT) 37 U/L (16-63) Alkaline Phosphatase 59 U/L (46-116) Total Protein 6.6 g/dL (6.4-8.2) Albumin 3.3 g/dL (3.4-5.0) Albumin/Globulin Ratio 1.0 (1.0-1.7) Stool Occult Blood Positive (NEG) VTE Prophylaxis Ordered VTE Prophylaxis Devices: No VTE Pharmacological Prophylaxi: Contraindicated Assessment/Plan Assessment/Plan acute colitis, no prior hx check cx, start flagyl, no leukocytosis, appears well painful abdomen, pain meds admit, consult GI FOREIGN DESAI MD Dec 13, 2018 21:36
[2018-12-13] MEDS ORDERED: oxyCODONE/APAP 5/325 1 TAB TABLET PO PRN (21:45)
[2018-12-13] MEDS ORDERED: MORPHINE SULFATE 4 MG/ML VIAL. IV PRN (21:45)
[2018-12-13] MEDS: IV NORMAL SALINE 1000ML BAG 1,000 ML IV SCH (21:49)
[2018-12-13 22:30] LABS: HEMATOCRIT 41.2 % (39.0-53.0); RED BLOOD COUNT 4.77 x10^6/uL (4.30-5.70); RED CELL DISTRIBUTION WIDTH 13.2 % (11.5-14.5); WHITE BLOOD COUNT 6.4 x10^3/uL (4.0-11.0)
[2018-12-13 23:00] VITALS: BP 113/79
[2018-12-14 00:10] LABS: BILIRUBIN,URINE NEGATIVE (NEG); CLARITY,URINE CLEAR; COLOR,URINE YELLOW; NITRITE,URINE NEGATIVE (NEG); PH,URINE 5.5; PROTEIN,URINE NEGATIVE (NEG-TRACE); UROBILINOGEN,URINE 0.2 mg/dL (0.2 mg/dL)
[2018-12-14 00:18] LABS: BACTERIA,URINE 0 /HPF (0-FEW); RBC,URINE 0 /HPF (0-2); SQUAMOUS EPITHELIAL CELL,UR OCC /LPF; WBC,URINE 0 /HPF (0-4)
[2018-12-14 03:00] VITALS: BP 127/81
[2018-12-14] MEDS: metroNIDAZOLE 500 MG TABLET PO SCH ×3 (06:00→21:46)
[2018-12-14 06:43] LABS: ALBUMIN 3.1 g/dL (3.4-5.0); CALCIUM 8.3 mg/dL (8.5-10.1); GFR 82.8; POTASSIUM 4.1 mmol/L (3.5-5.1); TOTAL BILIRUBIN 1.3 mg/dL (0.2-1.0); TOTAL PROTEIN 6.1 g/dL (6.4-8.2)
[2018-12-14 06:59] LABS: BASO % 0 % (0-3); EOS # 0.1 x10^3/uL (0.0-0.7); EOS % 1 % (0-3); HEMATOCRIT 41.4 % (39.0-53.0); HEMOGLOBIN 14.2 g/dL (13.0-17.5); LYMPH % 34 % (24-48); MEAN CORPUSCULAR HEMOGLOBIN 30 pg (25-35); MEAN CORPUSCULAR HGB CONC 34 g/dL (31-37); MEAN CORPUSCULAR VOLUME 86 fL (79-100); MONO # 0.5 x10^3/uL (0.0-1.1); MONO % 8 % (0-9); NEUT # 3.3 x10^3uL (1.8-7.7); NEUT % 57 % (31-73); PLATELET COUNT 102 x10^3/uL (140-400); RED BLOOD COUNT 4.82 x10^6/uL (4.30-5.70); RED CELL DISTRIBUTION WIDTH 13.2 % (11.5-14.5); WHITE BLOOD COUNT 5.8 x10^3/uL (4.0-11.0)
[2018-12-14 07:00] VITALS: BP 123/77
[2018-12-14] MEDS: IV NORMAL SALINE 1000ML BAG 1,000 ML IV SCH ×2 (08:44→12:32)
--- NOTE | 2018-12-14 08:55 | NUR ---
SW reviewed pt's medical chart and evaluated for potential dc needs. Pt is from home and was admitted for rectal bleeding. PT/OT has not been ordered and there are no dc needs at this time. SW will be available if pt's condition changes and there is a need for services.
--- NOTE | 2018-12-14 09:43 | PDOC2 ---
GI CONSULT Reason For Consult: Rectal bleeding HPI: HPI: 38 y/o Upper Sorbian-speaking male - translation help from his friend Bronwyn via cell phone. He reports seeing red and black blood w/ stool ("a little diarrhea " and "some small hard pieces") once on Friday morning and once on Friday morning. We saw him in 10/2017 for h/o anemia and black watery stools. He was apparently at ~3 months before for same symptoms, reports normal EGD and colonoscopy there. Records were requested but not received. At that time, CT showed small metallic densities in RLQ (?previous embolization). Then had normal EGD w/ Dr. Garcia here. Bleeding scan initially negative, then delayed images noted "increased radiotracer in the right hemiabdomen in the region of the ascending colon with additional images demonstrating slight transit into the transverse colon consistent with GI bleed" but exact location and timing of the bleed could not be assessed due to the delayed technique. Recs to follow-up at at that time. H/o GERD on omeprazole QD, no n/v, no dysphagia, no abd pain, no weight loss. Says also takes iron QD and uses hemorrhoid creams. Says no issues w/ bleeding since he was seen here in 10/2017. Hgb is 14.2 (from 14.5) and fecal occult was positive Plt 102, bili 1.3. On CT : mild mural thickening of duodenum (indeterminate between pseudothickening from incomplete distention versus nonspecific duodenitis). Getting antibiotics. Has stool studies ordered. Since I saw him earlier this morning, plans to start clear liquids and request records from again. PMH: PMH: HLD, anemia/GI bleeding FH: Family History: No pertinent hx Social History: Smoke: No ALCOHOL: other (sober 7-8 years) Drugs: None ROS: GEN: Denies fevers, chills, sweats HEENT: Denies blurred vision, sore throat CV: Denies chest pain RESP: Denies shortness of air, cough GI: Per HPI : Denies hematuria, dysuria ENDO: Denies weight changes NEURO: Denies confusion, dizziness MSK: Denies weakness, joint pain/swelling SKIN: Denies jaundice, pruritus Vitals: Vitals: Vital Signs Date Time Temp Pulse Resp B/P (MAP) Pulse Ox O2 Delivery O2 Flow Rate FiO2 12/14/18 08:20 Room Air 12/14/18 07:00 97.8 71 18 123/77 (92) 99 97.8 Labs: Labs: Laboratory Tests Test 12/13/18 16:35 12/13/18 17:00 12/13/18 22:05 12/13/18 23:59 White Blood Count 5.4 x10^3/uL (4.0-11.0) 6.4 x10^3/uL (4.0-11.0) Red Blood Count 4.91 x10^6/uL (4.30-5.70) 4.77 x10^6/uL (4.30-5.70) Hemoglobin 14.5 g/dL (13.0-17.5) 14.0 g/dL (13.0-17.5) Hematocrit 41.8 % (39.0-53.0) 41.2 % (39.0-53.0) Mean Corpuscular Volume 85 fL (79-100) 86 fL (79-100) Mean Corpuscular Hemoglobin 30 pg (25-35) 29 pg (25-35) Mean Corpuscular Hemoglobin Concent 35 g/dL (31-37) 34 g/dL (31-37) Red Cell Distribution Width 13.2 % (11.5-14.5) 13.2 % (11.5-14.5) Platelet Count 124 x10^3/uL (140-400) 118 x10^3/uL (140-400) Neutrophils (%) (Auto) 65 % (31-73) Lymphocytes (%) (Auto) 26 % (24-48) Monocytes (%) (Auto) 8 % (0-9) Eosinophils (%) (Auto) 1 % (0-3) Basophils (%) (Auto) 0 % (0-3) Neutrophils # (Auto) 3.5 x10^3uL (1.8-7.7) Lymphocytes # (Auto) 1.4 x10^3/uL (1.0-4.8) Monocytes # (Auto) 0.4 x10^3/uL (0.0-1.1) Eosinophils # (Auto) 0.0 x10^3/uL (0.0-0.7) Basophils # (Auto) 0.0 x10^3/uL (0.0-0.2) Prothrombin Time 13.7 SEC (11.7-14.0) Prothromb Time International Ratio 1.1 (0.8-1.1) Activated Partial Thromboplast Time 33 SEC (24-38) Sodium Level 141 mmol/L (136-145) Potassium Level 4.0 mmol/L (3.5-5.1) Chloride Level 103 mmol/L (98-107) Carbon Dioxide Level 30 mmol/L (21-32) Anion Gap 8 (6-14) Blood Urea Nitrogen 16 mg/dL (8-26) Creatinine 1.0 mg/dL (0.7-1.3) Estimated GFR (Cockcroft-Gault) 82.8 BUN/Creatinine Ratio 16 (6-20) Glucose Level 106 mg/dL (70-99) Calcium Level 8.3 mg/dL (8.5-10.1) Total Bilirubin 1.2 mg/dL (0.2-1.0) Aspartate Amino Transf (AST/SGOT) 16 U/L (15-37) Alanine Aminotransferase (ALT/SGPT) 37 U/L (16-63) Alkaline Phosphatase 59 U/L (46-116) Total Protein 6.6 g/dL (6.4-8.2) Albumin 3.3 g/dL (3.4-5.0) Albumin/Globulin Ratio 1.0 (1.0-1.7) Stool Occult Blood Positive (NEG) Urine Collection Type Unknown Urine Color Yellow Urine Clarity Clear Urine pH 5.5 Urine Specific [place] >=1.030 Urine Protein Negative mg/dL (NEG-TRACE) Urine Glucose (UA) Negative mg/dL (NEG) Urine Ketones (Stick) Negative mg/dL (NEG) Urine Blood Negative (NEG) Urine Nitrite Negative (NEG) Urine Bilirubin Negative (NEG) Urine Urobilinogen Dipstick 0.2 mg/dL (0.2 mg/dL) Urine Leukocyte Esterase Negative (NEG) Urine RBC 0 /HPF (0-2) Urine WBC 0 /HPF (0-4) Urine Squamous Epithelial Cells Occ /LPF Urine Bacteria 0 /HPF (0-FEW) Test 12/14/18 05:00 White Blood Count 5.8 x10^3/uL (4.0-11.0) Red Blood Count 4.82 x10^6/uL (4.30-5.70) Hemoglobin 14.2 g/dL (13.0-17.5) Hematocrit 41.4 % (39.0-53.0) Mean Corpuscular Volume 86 fL (79-100) Mean Corpuscular Hemoglobin 30 pg (25-35) Mean Corpuscular Hemoglobin Concent 34 g/dL (31-37) Red Cell Distribution Width 13.2 % (11.5-14.5) Platelet Count 102 x10^3/uL (140-400) Neutrophils (%) (Auto) 57 % (31-73) Lymphocytes (%) (Auto) 34 % (24-48) Monocytes (%) (Auto) 8 % (0-9) Eosinophils (%) (Auto) 1 % (0-3) Basophils (%) (Auto) 0 % (0-3) Neutrophils # (Auto) 3.3 x10^3uL (1.8-7.7) Lymphocytes # (Auto) 2.0 x10^3/uL (1.0-4.8) Monocytes # (Auto) 0.5 x10^3/uL (0.0-1.1) Eosinophils # (Auto) 0.1 x10^3/uL (0.0-0.7) Basophils # (Auto) 0.0 x10^3/uL (0.0-0.2) Sodium Level 144 mmol/L (136-145) Potassium Level 4.1 mmol/L (3.5-5.1) Chloride Level 106 mmol/L (98-107) Carbon Dioxide Level 31 mmol/L (21-32) Anion Gap 7 (6-14) Blood Urea Nitrogen 16 mg/dL (8-26) Creatinine 1.0 mg/dL (0.7-1.3) Estimated GFR (Cockcroft-Gault) 82.8 BUN/Creatinine Ratio 16 (6-20) Glucose Level 100 mg/dL (70-99) Calcium Level 8.3 mg/dL (8.5-10.1) Total Bilirubin 1.3 mg/dL (0.2-1.0) Aspartate Amino Transf (AST/SGOT) 16 U/L (15-37) Alanine Aminotransferase (ALT/SGPT) 33 U/L (16-63) Alkaline Phosphatase 53 U/L (46-116) Total Protein 6.1 g/dL (6.4-8.2) Albumin 3.1 g/dL (3.4-5.0) Albumin/Globulin Ratio 1.0 (1.0-1.7) Allergies: Coded Allergies: ciprofloxacin (Verified Allergy, Intermediate, 11/06/17) Medications: Current Medications Medications (Trade) Dose Ordered Sig/Fahad Route PRN Reason Start Time Stop Time Status Last Admin Dose Admin Iohexol (Omnipaque 300 Mg/ml) 75 ml 1X ONCE IV 12/13/18 17:45 12/13/18 17:46 DC 12/13/18 18:17 Sodium Chloride 1,000 ml @ 100 mls/hr Q10H IV 12/13/18 19:08 12/14/18 19:07 12/13/18 21:49 Metronidazole 100 ml @ 100 mls/hr 1X ONCE IV 12/13/18 21:00 12/13/18 21:59 DC 12/13/18 21:51 Imaging: Imaging: CT A/P w/ IV contrast IMPRESSION: 1. Mild duodenal mural thickening without adjacent stranding, indeterminate between pseudothickening from incomplete distention versus nonspecific duodenitis. 2. Fecalized contents of the mid to distal small bowel loops, may represent delayed transit. 3. Two subcentimeter noncalcified pulmonary nodules in the lung bases. In a low- risk patient, no additional follow-up is necessary. In a high-risk patient. Follow-up CT chest is recommended. PE: GEN: NAD HEENT: Atraumatic, PERRL LUNGS: CTAB HEART: RRR ABD: NABS, S/ND/NT EXTREMITY: No edema SKIN: No rashes, no jaundice NEURO/PSYCH: A & O 3 A/P: A/P: ?hematochezia/?melena w/ liquid and hard stools H/o anemia and GI bleeding - normal Hgb this time, past 'scopes at , also normal EGD here, on PO iron GERD - controlled on PPI CRC screen - done at H/o hemorrhoids Thrombocytopenia - history of same Mildly elevated bilirubin -- Agree w/ trial of clears. Hopefully can get some records from . Resume PPI. ?need for antibiotics MARIAH-MATTHEW MARTINS Dec 14, 2018 09:43
--- NOTE | 2018-12-14 10:03 | PDOC ---
PROGRESS NOTES Chief Complaint Chief Complaint Abdominal pain-recurrent Duodenitis on CT Rectal bleed-has happened before History of capsule endoscopy and colonoscopy at 2 years ago History of Present Illness History of Present Illness HGb stable for the past days Hemodynamically stable with stable VS Tells me that this has happened before in also workup done including a colonoscopy maybe 1 or 2 years ago Also indicates a capsule endoscopy with unrevealing results NO asa or nsaids, just PPI at home (shows me his bottle) Plan GI consulted So far hemodynamically stable Obtain records from Might be okay with clear liquid?-We'll defer to GI Vitals Vitals Vital Signs Date Time Temp Pulse Resp B/P (MAP) Pulse Ox O2 Delivery O2 Flow Rate FiO2 12/14/18 08:20 Room Air 12/14/18 07:00 97.8 71 18 123/77 (92) 99 97.8 Physical Exam General: Alert, Oriented X3, Cooperative, mild distress Lungs: Clear, Other Abdomen: Normal bowel sounds, Soft (mild tender, no guarding, no rebound) Extremities: No clubbing, No edema Skin: No rashes, No breakdown, No significant lesion Labs LABS Laboratory Tests Test 12/13/18 16:35 12/13/18 17:00 12/13/18 22:05 12/13/18 23:59 White Blood Count 5.4 x10^3/uL (4.0-11.0) 6.4 x10^3/uL (4.0-11.0) Red Blood Count 4.91 x10^6/uL (4.30-5.70) 4.77 x10^6/uL (4.30-5.70) Hemoglobin 14.5 g/dL (13.0-17.5) 14.0 g/dL (13.0-17.5) Hematocrit 41.8 % (39.0-53.0) 41.2 % (39.0-53.0) Mean Corpuscular Volume 85 fL (79-100) 86 fL (79-100) Mean Corpuscular Hemoglobin 30 pg (25-35) 29 pg (25-35) Mean Corpuscular Hemoglobin Concent 35 g/dL (31-37) 34 g/dL (31-37) Red Cell Distribution Width 13.2 % (11.5-14.5) 13.2 % (11.5-14.5) Platelet Count 124 x10^3/uL (140-400) 118 x10^3/uL (140-400) Neutrophils (%) (Auto) 65 % (31-73) Lymphocytes (%) (Auto) 26 % (24-48) Monocytes (%) (Auto) 8 % (0-9) Eosinophils (%) (Auto) 1 % (0-3) Basophils (%) (Auto) 0 % (0-3) Neutrophils # (Auto) 3.5 x10^3uL (1.8-7.7) Lymphocytes # (Auto) 1.4 x10^3/uL (1.0-4.8) Monocytes # (Auto) 0.4 x10^3/uL (0.0-1.1) Eosinophils # (Auto) 0.0 x10^3/uL (0.0-0.7) Basophils # (Auto) 0.0 x10^3/uL (0.0-0.2) Prothrombin Time 13.7 SEC (11.7-14.0) Prothromb Time International Ratio 1.1 (0.8-1.1) Activated Partial Thromboplast Time 33 SEC (24-38) Sodium Level 141 mmol/L (136-145) Potassium Level 4.0 mmol/L (3.5-5.1) Chloride Level 103 mmol/L (98-107) Carbon Dioxide Level 30 mmol/L (21-32) Anion Gap 8 (6-14) Blood Urea Nitrogen 16 mg/dL (8-26) Creatinine 1.0 mg/dL (0.7-1.3) Estimated GFR (Cockcroft-Gault) 82.8 BUN/Creatinine Ratio 16 (6-20) Glucose Level 106 mg/dL (70-99) Calcium Level 8.3 mg/dL (8.5-10.1) Total Bilirubin 1.2 mg/dL (0.2-1.0) Aspartate Amino Transf (AST/SGOT) 16 U/L (15-37) Alanine Aminotransferase (ALT/SGPT) 37 U/L (16-63) Alkaline Phosphatase 59 U/L (46-116) Total Protein 6.6 g/dL (6.4-8.2) Albumin 3.3 g/dL (3.4-5.0) Albumin/Globulin Ratio 1.0 (1.0-1.7) Stool Occult Blood Positive (NEG) Urine Collection Type Unknown Urine Color Yellow Urine Clarity Clear Urine pH 5.5 Urine Specific [place] >=1.030 Urine Protein Negative mg/dL (NEG-TRACE) Urine Glucose (UA) Negative mg/dL (NEG) Urine Ketones (Stick) Negative mg/dL (NEG) Urine Blood Negative (NEG) Urine Nitrite Negative (NEG) Urine Bilirubin Negative (NEG) Urine Urobilinogen Dipstick 0.2 mg/dL (0.2 mg/dL) Urine Leukocyte Esterase Negative (NEG) Urine RBC 0 /HPF (0-2) Urine WBC 0 /HPF (0-4) Urine Squamous Epithelial Cells Occ /LPF Urine Bacteria 0 /HPF (0-FEW) Test 12/14/18 05:00 White Blood Count 5.8 x10^3/uL (4.0-11.0) Red Blood Count 4.82 x10^6/uL (4.30-5.70) Hemoglobin 14.2 g/dL (13.0-17.5) Hematocrit 41.4 % (39.0-53.0) Mean Corpuscular Volume 86 fL (79-100) Mean Corpuscular Hemoglobin 30 pg (25-35) Mean Corpuscular Hemoglobin Concent 34 g/dL (31-37) Red Cell Distribution Width 13.2 % (11.5-14.5) Platelet Count 102 x10^3/uL (140-400) Neutrophils (%) (Auto) 57 % (31-73) Lymphocytes (%) (Auto) 34 % (24-48) Monocytes (%) (Auto) 8 % (0-9) Eosinophils (%) (Auto) 1 % (0-3) Basophils (%) (Auto) 0 % (0-3) Neutrophils # (Auto) 3.3 x10^3uL (1.8-7.7) Lymphocytes # (Auto) 2.0 x10^3/uL (1.0-4.8) Monocytes # (Auto) 0.5 x10^3/uL (0.0-1.1) Eosinophils # (Auto) 0.1 x10^3/uL (0.0-0.7) Basophils # (Auto) 0.0 x10^3/uL (0.0-0.2) Sodium Level 144 mmol/L (136-145) Potassium Level 4.1 mmol/L (3.5-5.1) Chloride Level 106 mmol/L (98-107) Carbon Dioxide Level 31 mmol/L (21-32) Anion Gap 7 (6-14) Blood Urea Nitrogen 16 mg/dL (8-26) Creatinine 1.0 mg/dL (0.7-1.3) Estimated GFR (Cockcroft-Gault) 82.8 BUN/Creatinine Ratio 16 (6-20) Glucose Level 100 mg/dL (70-99) Calcium Level 8.3 mg/dL (8.5-10.1) Total Bilirubin 1.3 mg/dL (0.2-1.0) Aspartate Amino Transf (AST/SGOT) 16 U/L (15-37) Alanine Aminotransferase (ALT/SGPT) 33 U/L (16-63) Alkaline Phosphatase 53 U/L (46-116) Total Protein 6.1 g/dL (6.4-8.2) Albumin 3.1 g/dL (3.4-5.0) Albumin/Globulin Ratio 1.0 (1.0-1.7) Review of Systems Review of Systems A 14 point ROS was completed with the following noted as positive: Other systems reviewed and negative. \CONSTITUTIONAL: No fever or chills EYES: No recent changes SKIN: No rash or itching CARDIOVASCULAR: No chest pain, syncope, palpitations, or edema RESPIRATORY: No SOB or cough GASTROINTESTINAL: No nausea, vomiting or abdominal pain NEUROLOGICAL: No headaches or weakness ENDOCRINE: No cold or heat intolerance GENITOURINARY: No urgency or frequency of urination MUSCULOSKELETAL: No back pain or joint pain LYMPHATICS: No enlarged lymph nodes PSYCHIATRIC: No anxiety or depression Assessment and Plan Assessmemt and Plan Problems Medical Problems: (1) Rectal bleeding Status: Acute Comment Review of Relevant I have reviewed the following items kilo (where applicable) has been applied. Labs Laboratory Tests Test 12/13/18 16:35 12/13/18 17:00 12/13/18 22:05 12/13/18 23:59 White Blood Count 5.4 x10^3/uL (4.0-11.0) 6.4 x10^3/uL (4.0-11.0) Red Blood Count 4.91 x10^6/uL (4.30-5.70) 4.77 x10^6/uL (4.30-5.70) Hemoglobin 14.5 g/dL (13.0-17.5) 14.0 g/dL (13.0-17.5) Hematocrit 41.8 % (39.0-53.0) 41.2 % (39.0-53.0) Mean Corpuscular Volume 85 fL (79-100) 86 fL (79-100) Mean Corpuscular Hemoglobin 30 pg (25-35) 29 pg (25-35) Mean Corpuscular Hemoglobin Concent 35 g/dL (31-37) 34 g/dL (31-37) Red Cell Distribution Width 13.2 % (11.5-14.5) 13.2 % (11.5-14.5) Platelet Count 124 x10^3/uL (140-400) 118 x10^3/uL (140-400) Neutrophils (%) (Auto) 65 % (31-73) Lymphocytes (%) (Auto) 26 % (24-48) Monocytes (%) (Auto) 8 % (0-9) Eosinophils (%) (Auto) 1 % (0-3) Basophils (%) (Auto) 0 % (0-3) Neutrophils # (Auto) 3.5 x10^3uL (1.8-7.7) Lymphocytes # (Auto) 1.4 x10^3/uL (1.0-4.8) Monocytes # (Auto) 0.4 x10^3/uL (0.0-1.1) Eosinophils # (Auto) 0.0 x10^3/uL (0.0-0.7) Basophils # (Auto) 0.0 x10^3/uL (0.0-0.2) Prothrombin Time 13.7 SEC (11.7-14.0) Prothromb Time International Ratio 1.1 (0.8-1.1) Activated Partial Thromboplast Time 33 SEC (24-38) Sodium Level 141 mmol/L (136-145) Potassium Level 4.0 mmol/L (3.5-5.1) Chloride Level 103 mmol/L (98-107) Carbon Dioxide Level 30 mmol/L (21-32) Anion Gap 8 (6-14) Blood Urea Nitrogen 16 mg/dL (8-26) Creatinine 1.0 mg/dL (0.7-1.3) Estimated GFR (Cockcroft-Gault) 82.8 BUN/Creatinine Ratio 16 (6-20) Glucose Level 106 mg/dL (70-99) Calcium Level 8.3 mg/dL (8.5-10.1) Total Bilirubin 1.2 mg/dL (0.2-1.0) Aspartate Amino Transf (AST/SGOT) 16 U/L (15-37) Alanine Aminotransferase (ALT/SGPT) 37 U/L (16-63) Alkaline Phosphatase 59 U/L (46-116) Total Protein 6.6 g/dL (6.4-8.2) Albumin 3.3 g/dL (3.4-5.0) Albumin/Globulin Ratio 1.0 (1.0-1.7) Stool Occult Blood Positive (NEG) Urine Collection Type Unknown Urine Color Yellow Urine Clarity Clear Urine pH 5.5 Urine Specific [place] >=1.030 Urine Protein Negative mg/dL (NEG-TRACE) Urine Glucose (UA) Negative mg/dL (NEG) Urine Ketones (Stick) Negative mg/dL (NEG) Urine Blood Negative (NEG) Urine Nitrite Negative (NEG) Urine Bilirubin Negative (NEG) Urine Urobilinogen Dipstick 0.2 mg/dL (0.2 mg/dL) Urine Leukocyte Esterase Negative (NEG) Urine RBC 0 /HPF (0-2) Urine WBC 0 /HPF (0-4) Urine Squamous Epithelial Cells Occ /LPF Urine Bacteria 0 /HPF (0-FEW) Test 12/14/18 05:00 White Blood Count 5.8 x10^3/uL (4.0-11.0) Red Blood Count 4.82 x10^6/uL (4.30-5.70) Hemoglobin 14.2 g/dL (13.0-17.5) Hematocrit 41.4 % (39.0-53.0) Mean Corpuscular Volume 86 fL (79-100) Mean Corpuscular Hemoglobin 30 pg (25-35) Mean Corpuscular Hemoglobin Concent 34 g/dL (31-37) Red Cell Distribution Width 13.2 % (11.5-14.5) Platelet Count 102 x10^3/uL (140-400) Neutrophils (%) (Auto) 57 % (31-73) Lymphocytes (%) (Auto) 34 % (24-48) Monocytes (%) (Auto) 8 % (0-9) Eosinophils (%) (Auto) 1 % (0-3) Basophils (%) (Auto) 0 % (0-3) Neutrophils # (Auto) 3.3 x10^3uL (1.8-7.7) Lymphocytes # (Auto) 2.0 x10^3/uL (1.0-4.8) Monocytes # (Auto) 0.5 x10^3/uL (0.0-1.1) Eosinophils # (Auto) 0.1 x10^3/uL (0.0-0.7) Basophils # (Auto) 0.0 x10^3/uL (0.0-0.2) Sodium Level 144 mmol/L (136-145) Potassium Level 4.1 mmol/L (3.5-5.1) Chloride Level 106 mmol/L (98-107) Carbon Dioxide Level 31 mmol/L (21-32) Anion Gap 7 (6-14) Blood Urea Nitrogen 16 mg/dL (8-26) Creatinine 1.0 mg/dL (0.7-1.3) Estimated GFR (Cockcroft-Gault) 82.8 BUN/Creatinine Ratio 16 (6-20) Glucose Level 100 mg/dL (70-99) Calcium Level 8.3 mg/dL (8.5-10.1) Total Bilirubin 1.3 mg/dL (0.2-1.0) Aspartate Amino Transf (AST/SGOT) 16 U/L (15-37) Alanine Aminotransferase (ALT/SGPT) 33 U/L (16-63) Alkaline Phosphatase 53 U/L (46-116) Total Protein 6.1 g/dL (6.4-8.2) Albumin 3.1 g/dL (3.4-5.0) Albumin/Globulin Ratio 1.0 (1.0-1.7) Laboratory Tests Test 12/13/18 16:35 12/13/18 17:00 12/13/18 22:05 12/13/18 23:59 White Blood Count 5.4 x10^3/uL (4.0-11.0) 6.4 x10^3/uL (4.0-11.0) Red Blood Count 4.91 x10^6/uL (4.30-5.70) 4.77 x10^6/uL (4.30-5.70) Hemoglobin 14.5 g/dL (13.0-17.5) 14.0 g/dL (13.0-17.5) Hematocrit 41.8 % (39.0-53.0) 41.2 % (39.0-53.0) Mean Corpuscular Volume 85 fL (79-100) 86 fL (79-100) Mean Corpuscular Hemoglobin 30 pg (25-35) 29 pg (25-35) Mean Corpuscular Hemoglobin Concent 35 g/dL (31-37) 34 g/dL (31-37) Red Cell Distribution Width 13.2 % (11.5-14.5) 13.2 % (11.5-14.5) Platelet Count 124 x10^3/uL (140-400) 118 x10^3/uL (140-400) Neutrophils (%) (Auto) 65 % (31-73) Lymphocytes (%) (Auto) 26 % (24-48) Monocytes (%) (Auto) 8 % (0-9) Eosinophils (%) (Auto) 1 % (0-3) Basophils (%) (Auto) 0 % (0-3) Neutrophils # (Auto) 3.5 x10^3uL (1.8-7.7) Lymphocytes # (Auto) 1.4 x10^3/uL (1.0-4.8) Monocytes # (Auto) 0.4 x10^3/uL (0.0-1.1) Eosinophils # (Auto) 0.0 x10^3/uL (0.0-0.7) Basophils # (Auto) 0.0 x10^3/uL (0.0-0.2) Prothrombin Time 13.7 SEC (11.7-14.0) Prothromb Time International Ratio 1.1 (0.8-1.1) Activated Partial Thromboplast Time 33 SEC (24-38) Sodium Level 141 mmol/L (136-145) Potassium Level 4.0 mmol/L (3.5-5.1) Chloride Level 103 mmol/L (98-107) Carbon Dioxide Level 30 mmol/L (21-32) Anion Gap 8 (6-14) Blood Urea Nitrogen 16 mg/dL (8-26) Creatinine 1.0 mg/dL (0.7-1.3) Estimated GFR (Cockcroft-Gault) 82.8 BUN/Creatinine Ratio 16 (6-20) Glucose Level 106 mg/dL (70-99) Calcium Level 8.3 mg/dL (8.5-10.1) Total Bilirubin 1.2 mg/dL (0.2-1.0) Aspartate Amino Transf (AST/SGOT) 16 U/L (15-37) Alanine Aminotransferase (ALT/SGPT) 37 U/L (16-63) Alkaline Phosphatase 59 U/L (46-116) Total Protein 6.6 g/dL (6.4-8.2) Albumin 3.3 g/dL (3.4-5.0) Albumin/Globulin Ratio 1.0 (1.0-1.7) Stool Occult Blood Positive (NEG) Urine Collection Type Unknown Urine Color Yellow Urine Clarity Clear Urine pH 5.5 Urine Specific [place] >=1.030 Urine Protein Negative mg/dL (NEG-TRACE) Urine Glucose (UA) Negative mg/dL (NEG) Urine Ketones (Stick) Negative mg/dL (NEG) Urine Blood Negative (NEG) Urine Nitrite Negative (NEG) Urine Bilirubin Negative (NEG) Urine Urobilinogen Dipstick 0.2 mg/dL (0.2 mg/dL) Urine Leukocyte Esterase Negative (NEG) Urine RBC 0 /HPF (0-2) Urine WBC 0 /HPF (0-4) Urine Squamous Epithelial Cells Occ /LPF Urine Bacteria 0 /HPF (0-FEW) Test 12/14/18 05:00 White Blood Count 5.8 x10^3/uL (4.0-11.0) Red Blood Count 4.82 x10^6/uL (4.30-5.70) Hemoglobin 14.2 g/dL (13.0-17.5) Hematocrit 41.4 % (39.0-53.0) Mean Corpuscular Volume 86 fL (79-100) Mean Corpuscular Hemoglobin 30 pg (25-35) Mean Corpuscular Hemoglobin Concent 34 g/dL (31-37) Red Cell Distribution Width 13.2 % (11.5-14.5) Platelet Count 102 x10^3/uL (140-400) Neutrophils (%) (Auto) 57 % (31-73) Lymphocytes (%) (Auto) 34 % (24-48) Monocytes (%) (Auto) 8 % (0-9) Eosinophils (%) (Auto) 1 % (0-3) Basophils (%) (Auto) 0 % (0-3) Neutrophils # (Auto) 3.3 x10^3uL (1.8-7.7) Lymphocytes # (Auto) 2.0 x10^3/uL (1.0-4.8) Monocytes # (Auto) 0.5 x10^3/uL (0.0-1.1) Eosinophils # (Auto) 0.1 x10^3/uL (0.0-0.7) Basophils # (Auto) 0.0 x10^3/uL (0.0-0.2) Sodium Level 144 mmol/L (136-145) Potassium Level 4.1 mmol/L (3.5-5.1) Chloride Level 106 mmol/L (98-107) Carbon Dioxide Level 31 mmol/L (21-32) Anion Gap 7 (6-14) Blood Urea Nitrogen 16 mg/dL (8-26) Creatinine 1.0 mg/dL (0.7-1.3) Estimated GFR (Cockcroft-Gault) 82.8 BUN/Creatinine Ratio 16 (6-20) Glucose Level 100 mg/dL (70-99) Calcium Level 8.3 mg/dL (8.5-10.1) Total Bilirubin 1.3 mg/dL (0.2-1.0) Aspartate Amino Transf (AST/SGOT) 16 U/L (15-37) Alanine Aminotransferase (ALT/SGPT) 33 U/L (16-63) Alkaline Phosphatase 53 U/L (46-116) Total Protein 6.1 g/dL (6.4-8.2) Albumin 3.1 g/dL (3.4-5.0) Albumin/Globulin Ratio 1.0 (1.0-1.7) Medications Current Medications Iohexol (Omnipaque 300 Mg/ml) 75 ml 1X ONCE IV Last administered on 12/13/18at 18:17; Start 12/13/18 at 17:45; Stop 12/13/18 at 17:46; Status DC Info (CONTRAST GIVEN -- Rx MONITORING) 1 each PRN DAILY PRN MC SEE COMMENTS; Start 12/13/18 at 18:00; Stop 12/15/18 at 17:59 Ondansetron HCl (Zofran) 4 mg PRN Q8HRS PRN IV NAUSEA/VOMITING; Start 12/13/18 at 19:15; Stop 12/14/18 at 19:14 Sodium Chloride 1,000 ml @ 100 mls/hr Q10H IV Last administered on 12/13/18at 21:49; Start 12/13/18 at 19:08; Stop 12/14/18 at 19:07 Metronidazole (Flagyl) 500 mg Q8HRS PO ; Start 12/14/18 at 06:00 Metronidazole 100 ml @ 100 mls/hr 1X ONCE IV Last administered on 12/13/18at 21:51; Start 12/13/18 at 21:00; Stop 12/13/18 at 21:59; Status DC Ciprofloxacin (Cipro) 500 mg BID PO ; Start 12/13/18 at 21:00; Stop 12/13/18 at 21:13; Status DC Oxycodone/ Acetaminophen (Percocet 5/325) 1 tab PRN Q4HRS PRN PO PAIN; Start at 21:45 Morphine Sulfate (Morphine Sulfate) 4 mg PRN Q2HR PRN IV PAIN; Start 12/13/18 at 21:45 Active Scripts Active Multivitamins (Multivitamin) 1 Each Tablet 1 Tab PO DAILY Tylenol (Acetaminophen) 325 Mg Tablet 1-2 Tab PO Q4-6HRS PRN Reported Ferrous Sulfate 325 Mg Tablet 65 Mg PO DAILY Protonix (Pantoprazole Sodium) 40 Mg Tablet. 1 Tab PO DAILY Vitals/I & O Vital Sign - Last 24 Hours 12/13/18 12/13/18 12/13/18 12/13/18 16:00 16:30 17:00 17:30 Temp 98.8 98.8 Pulse 70 72 72 68 Resp 16 18 18 18 B/P (MAP) 123/78 (93) 114/77 (89) 143/80 (101) 109/69 (82) Pulse Ox 99 96 98 97 O2 Delivery Room Air Room Air Room Air Room Air 12/13/18 12/13/18 12/13/18 12/13/18 18:30 19:00 19:30 20:30 Pulse 68 68 70 Resp 18 16 16 B/P (MAP) 134/81 (98) 121/74 (90) 121/78 (92) Pulse Ox 97 98 98 O2 Delivery Room Air Room Air Room Air Room Air 12/13/18 12/13/18 12/14/18 12/14/18 21:00 23:00 03:00 07:00 Temp 98.3 97.7 98.3 97.8 98.3 97.7 98.3 97.8 Pulse 68 64 68 71 Resp 18 18 18 18 B/P (MAP) 127/81 (96) 113/79 (90) 127/81 (96) 123/77 (92) Pulse Ox 95 95 95 99 O2 Delivery Room Air Room Air Room Air Room Air 12/14/18 08:20 O2 Delivery Room Air Intake and Output 12/13/18 12/13/18 12/14/18 14:59 22:59 06:59 Intake Total 200 ml Output Total 400 ml Balance -200 ml MARY KING MD Dec 14, 2018 10:02
[2018-12-14 11:00] VITALS: BP 109/69
[2018-12-14 15:00] VITALS: BP 121/77
--- NOTE | 2018-12-14 16:53 | NUR ---
NIKO faxed to [facility] this am.
[2018-12-14 19:00] VITALS: BP 119/72
[2018-12-14 23:00] VITALS: BP 112/78
--- NOTE | 2018-12-15 02:41 | NUR ---
Small Bowel Series exam cancelled for 12/14/18 and changed to routine 12/15/18. Will proceed with NPO at 12am.
[2018-12-15 03:00] VITALS: BP 111/74
[2018-12-15] MEDS: metroNIDAZOLE 500 MG TABLET PO SCH (05:44)
[2018-12-15] MEDS: PANTOPRAZOLE 40 MG TABLET.DR. PO SCH (05:44)
[2018-12-15] MEDS ORDERED: BARIUM SULFATE 60% 355 ML SUSP PO ONE (07:00)
--- NOTE | 2018-12-15 07:35 | NUR ---
pt left for [facility] at [id number]
--- NOTE | 2018-12-15 10:06 | NUR ---
pt returned from [facility] at this time
--- NOTE | 2018-12-15 10:15 | PDOC ---
PROGRESS NOTES Chief Complaint Chief Complaint Abdominal pain-recurrent Duodenitis on CT Rectal bleed-has happened before History of capsule endoscopy and colonoscopy at [facility] 2 years ago History of Present Illness History of Present Illness claims still having melena, small bits VS and hemoglobin stable Just got back from Small bowel series-results pending Plan: continue clears, follow-up small bowel series ff GI recommendations Vitals Vitals Vital Signs Date Time Temp Pulse Resp B/P (MAP) Pulse Ox O2 Delivery O2 Flow Rate FiO2 12/15/18 03:00 98.7 81 18 111/74 (86) 99 Room Air 98.7 Physical Exam General: Alert, Oriented X3, Cooperative, mild distress Heart: Regular rate, Normal S1, Normal S2 Lungs: Clear, Other Abdomen: Normal bowel sounds, Soft (mild tender, no guarding, no rebound) Extremities: No clubbing, No edema Skin: No rashes, No breakdown, No significant lesion Review of Systems Review of Systems Melena, the rest of ROS 14 point negative Assessment and Plan Assessmemt and Plan Problems Medical Problems: (1) Rectal bleeding Status: Acute Comment Review of Relevant I have reviewed the following items kilo (where applicable) has been applied. Labs Laboratory Tests Test 12/13/18 16:35 12/13/18 17:00 12/13/18 22:05 12/13/18 23:59 White Blood Count 5.4 x10^3/uL (4.0-11.0) 6.4 x10^3/uL (4.0-11.0) Red Blood Count 4.91 x10^6/uL (4.30-5.70) 4.77 x10^6/uL (4.30-5.70) Hemoglobin 14.5 g/dL (13.0-17.5) 14.0 g/dL (13.0-17.5) Hematocrit 41.8 % (39.0-53.0) 41.2 % (39.0-53.0) Mean Corpuscular Volume 85 fL (79-100) 86 fL (79-100) Mean Corpuscular Hemoglobin 30 pg (25-35) 29 pg (25-35) Mean Corpuscular Hemoglobin Concent 35 g/dL (31-37) 34 g/dL (31-37) Red Cell Distribution Width 13.2 % (11.5-14.5) 13.2 % (11.5-14.5) Platelet Count 124 x10^3/uL (140-400) 118 x10^3/uL (140-400) Neutrophils (%) (Auto) 65 % (31-73) Lymphocytes (%) (Auto) 26 % (24-48) Monocytes (%) (Auto) 8 % (0-9) Eosinophils (%) (Auto) 1 % (0-3) Basophils (%) (Auto) 0 % (0-3) Neutrophils # (Auto) 3.5 x10^3uL (1.8-7.7) Lymphocytes # (Auto) 1.4 x10^3/uL (1.0-4.8) Monocytes # (Auto) 0.4 x10^3/uL (0.0-1.1) Eosinophils # (Auto) 0.0 x10^3/uL (0.0-0.7) Basophils # (Auto) 0.0 x10^3/uL (0.0-0.2) Prothrombin Time 13.7 SEC (11.7-14.0) Prothromb Time International Ratio 1.1 (0.8-1.1) Activated Partial Thromboplast Time 33 SEC (24-38) Sodium Level 141 mmol/L (136-145) Potassium Level 4.0 mmol/L (3.5-5.1) Chloride Level 103 mmol/L (98-107) Carbon Dioxide Level 30 mmol/L (21-32) Anion Gap 8 (6-14) Blood Urea Nitrogen 16 mg/dL (8-26) Creatinine 1.0 mg/dL (0.7-1.3) Estimated GFR (Cockcroft-Gault) 82.8 BUN/Creatinine Ratio 16 (6-20) Glucose Level 106 mg/dL (70-99) Calcium Level 8.3 mg/dL (8.5-10.1) Total Bilirubin 1.2 mg/dL (0.2-1.0) Aspartate Amino Transf (AST/SGOT) 16 U/L (15-37) Alanine Aminotransferase (ALT/SGPT) 37 U/L (16-63) Alkaline Phosphatase 59 U/L (46-116) Total Protein 6.6 g/dL (6.4-8.2) Albumin 3.3 g/dL (3.4-5.0) Albumin/Globulin Ratio 1.0 (1.0-1.7) Stool Occult Blood Positive (NEG) Urine Collection Type Unknown Urine Color Yellow Urine Clarity Clear Urine pH 5.5 Urine Specific [place] >=1.030 Urine Protein Negative mg/dL (NEG-TRACE) Urine Glucose (UA) Negative mg/dL (NEG) Urine Ketones (Stick) Negative mg/dL (NEG) Urine Blood Negative (NEG) Urine Nitrite Negative (NEG) Urine Bilirubin Negative (NEG) Urine Urobilinogen Dipstick 0.2 mg/dL (0.2 mg/dL) Urine Leukocyte Esterase Negative (NEG) Urine RBC 0 /HPF (0-2) Urine WBC 0 /HPF (0-4) Urine Squamous Epithelial Cells Occ /LPF Urine Bacteria 0 /HPF (0-FEW) Test 12/14/18 05:00 White Blood Count 5.8 x10^3/uL (4.0-11.0) Red Blood Count 4.82 x10^6/uL (4.30-5.70) Hemoglobin 14.2 g/dL (13.0-17.5) Hematocrit 41.4 % (39.0-53.0) Mean Corpuscular Volume 86 fL (79-100) Mean Corpuscular Hemoglobin 30 pg (25-35) Mean Corpuscular Hemoglobin Concent 34 g/dL (31-37) Red Cell Distribution Width 13.2 % (11.5-14.5) Platelet Count 102 x10^3/uL (140-400) Neutrophils (%) (Auto) 57 % (31-73) Lymphocytes (%) (Auto) 34 % (24-48) Monocytes (%) (Auto) 8 % (0-9) Eosinophils (%) (Auto) 1 % (0-3) Basophils (%) (Auto) 0 % (0-3) Neutrophils # (Auto) 3.3 x10^3uL (1.8-7.7) Lymphocytes # (Auto) 2.0 x10^3/uL (1.0-4.8) Monocytes # (Auto) 0.5 x10^3/uL (0.0-1.1) Eosinophils # (Auto) 0.1 x10^3/uL (0.0-0.7) Basophils # (Auto) 0.0 x10^3/uL (0.0-0.2) Sodium Level 144 mmol/L (136-145) Potassium Level 4.1 mmol/L (3.5-5.1) Chloride Level 106 mmol/L (98-107) Carbon Dioxide Level 31 mmol/L (21-32) Anion Gap 7 (6-14) Blood Urea Nitrogen 16 mg/dL (8-26) Creatinine 1.0 mg/dL (0.7-1.3) Estimated GFR (Cockcroft-Gault) 82.8 BUN/Creatinine Ratio 16 (6-20) Glucose Level 100 mg/dL (70-99) Calcium Level 8.3 mg/dL (8.5-10.1) Total Bilirubin 1.3 mg/dL (0.2-1.0) Aspartate Amino Transf (AST/SGOT) 16 U/L (15-37) Alanine Aminotransferase (ALT/SGPT) 33 U/L (16-63) Alkaline Phosphatase 53 U/L (46-116) Total Protein 6.1 g/dL (6.4-8.2) Albumin 3.1 g/dL (3.4-5.0) Albumin/Globulin Ratio 1.0 (1.0-1.7) Medications Current Medications Iohexol (Omnipaque 300 Mg/ml) 75 ml 1X ONCE IV Last administered on 12/13/18at 18:17; Start 12/13/18 at 17:45; Stop 12/13/18 at 17:46; Status DC Info (CONTRAST GIVEN -- Rx MONITORING) 1 each PRN DAILY PRN MC SEE COMMENTS; Start 12/13/18 at 18:00; Stop 12/15/18 at 17:59 Ondansetron HCl (Zofran) 4 mg PRN Q8HRS PRN IV NAUSEA/VOMITING; Start 12/13/18 at 19:15; Stop 12/14/18 at 19:14; Status DC Sodium Chloride 1,000 ml @ 100 mls/hr Q10H IV Last administered on 12/14/18at 12:32; Start 12/13/18 at 19:08; Stop 12/14/18 at 19:07; Status DC Metronidazole (Flagyl) 500 mg Q8HRS PO Last administered on 12/14/18at 21:46; Start 12/14/18 at 06:00; Stop 12/15/18 at 08:39; Status DC Metronidazole 100 ml @ 100 mls/hr 1X ONCE IV Last administered on 12/13/18at 21:51; Start 12/13/18 at 21:00; Stop 12/13/18 at 21:59; Status DC Ciprofloxacin (Cipro) 500 mg BID PO ; Start 12/13/18 at 21:00; Stop 12/13/18 at 21:13; Status DC Oxycodone/ Acetaminophen (Percocet 5/325) 1 tab PRN Q4HRS PRN PO PAIN; Start at 21:45 Morphine Sulfate (Morphine Sulfate) 4 mg PRN Q2HR PRN IV PAIN; Start 12/13/18 at 21:45 Pantoprazole Sodium (Protonix) 40 mg DAILYAC PO ; Start 12/15/18 at 07:30 Barium Sulfate (Liquid E-Z Paque) 710 ml 1X ONCE PO Last administered on at 07:45; Start 12/15/18 at 07:00; Stop 12/15/18 at 07:01; Status DC Active Scripts Active Multivitamins (Multivitamin) 1 Each Tablet 1 Tab PO DAILY Tylenol (Acetaminophen) 325 Mg Tablet 1-2 Tab PO Q4-6HRS PRN Reported Ferrous Sulfate 325 Mg Tablet 65 Mg PO DAILY Protonix (Pantoprazole Sodium) 40 Mg Tablet. 1 Tab PO DAILY Vitals/I & O Vital Sign - Last 24 Hours 12/14/18 12/14/18 12/14/18 12/14/18 11:00 15:00 19:00 20:45 Temp 97.7 98.4 98.2 97.7 98.4 98.2 Pulse 66 78 77 Resp 18 18 18 B/P (MAP) 109/69 (82) 121/77 (92) 119/72 (88) Pulse Ox 99 98 99 O2 Delivery Room Air Room Air Room Air Room Air 12/14/18 12/15/18 23:00 03:00 Temp 99.8 98.7 99.8 98.7 Pulse 64 81 Resp 18 18 B/P (MAP) 112/78 (89) 111/74 (86) Pulse Ox 98 99 O2 Delivery Room Air Room Air Intake and Output 12/14/18 12/14/18 12/15/18 14:59 22:59 06:59 Intake Total 250 ml Balance 250 ml MARY KING MD Dec 15, 2018 10:15
[2018-12-15 11:00] VITALS: BP 114/81
--- NOTE | 2018-12-15 14:10 | PDOC ---
Subjective: Subjective: Pain is better. "A little" bleeding. Tolerating PO. Objective: Objective: 3 stools charted. Per RN - brown liquid stool, maybe red when flushed. Vital Signs: Vital Signs Date Time Temp Pulse Resp B/P (MAP) Pulse Ox O2 Delivery O2 Flow Rate FiO2 12/15/18 11:00 98.1 67 16 114/81 (92) 100 Room Air 98.1 Imaging: SBS 12/15 pending PE: GEN: NAD, talking on phone, smiling, in chair ABD: S/ND/NT NEURO/PSYCH: A & O 3, Irish-speaking A/P: ?hematochezia -- Await SBS results, will check if records received from [facility]. MATTHEW WEEKS Dec 15, 2018 14:10
[2018-12-15 15:00] VITALS: BP 114/72
--- NOTE | 2018-12-15 15:37 | RAD ---
Clinical indications: Rectal bleeding. Gastritis and colitis. No discitis. Abdominal pain. Technique: A preliminary KUB was performed. The patient drank two 8 ounce glasses of thin liquid barium and a small bowel series was performed. When the contrast reached the colon, fluoroscopic evaluation of the small bowel was performed including compressive fluoroscopic spot views of the terminal ileum. Total fluoroscopic time: 0.9 minutes. Total fluoroscopic spot views: 5. Findings: No obstructive bowel pattern is seen on the preliminary film.. Contrast reaches the colon by 90 minutes. The duodenal C-loop appears normal. Peristalsis of the small bowel loops is observed during fluoroscopy. No mucosal fold thickening or distortion or displacement or dilatation of small bowel loops is seen.The terminal ileum is distensible and appears normal radiographically. The patient was palpably tender over the right lower quadrant of the abdomen in the region of the cecum and terminal ileum.. The appendix is not visualized but appeared normal on recent CT study dated December 13, 2018.. Impression: The patient is palpably tender over the right lower quadrant of the abdomen in the region of the cecum and terminal ileum. However the terminal ileum is distensible and exhibits normal peristalsis. Otherwise unremarkable small bowel series. Electronically signed by: Wesley Saldaña MD (12/15/2018 3:34 PM) [facility]
[2018-12-15 19:15] VITALS: BP 126/79
[2018-12-15 23:00] VITALS: BP 123/82
[2018-12-16 03:27] VITALS: BP 126/89
[2018-12-16] MEDS: PANTOPRAZOLE 40 MG TABLET.DR. PO SCH (06:38)
[2018-12-16 07:00] VITALS: BP 128/79
--- NOTE | 2018-12-16 10:34 | PDOC ---
Subjective: Subjective: Reports normal stool w/ "light red" surrounding. Tolerating PO. Mild middle/left abdominal pain. Asked about rectal pain w/ stooling - "maybe." Tells me bleeding ongoing for three years. Objective: Objective: No records from [facility]. Vital Signs: Vital Signs Date Time Temp Pulse Resp B/P (MAP) Pulse Ox O2 Delivery O2 Flow Rate FiO2 12/16/18 08:00 Room Air 12/16/18 07:00 97.9 74 18 128/79 (95) 100 97.9 Imaging: SBS 12/15 Impression: The patient is palpably tender over the right lower quadrant of the abdomen in the region of the cecum and terminal ileum. However the terminal ileum is distensible and exhibits normal peristalsis. Otherwise unremarkable small bowel series. PE: GEN: NAD LUNGS: CTAB HEART: RRR ABD: NABS, S/ND/NT NEURO/PSYCH: A & O 3 A/P: Blood around stool -- Hemorrhoids? Discharge? MATTHEW WEEKS Dec 16, 2018 10:34
[2018-12-16 11:00] VITALS: BP 124/76
--- NOTE | 2018-12-16 14:54 | NUR ---
SW following. Discussed with RN, RN advised no SW needs at this time. Pt is self pay, SW attempted to give self pay resources, RN Josephine advised pt had discharged already. No further SW needs.
--- NOTE | 2018-12-16 15:33 | NUR ---
pt is discharged home with self care at 1305 via ambulation via [facility]ISTER[facility] NURSE. pt is in stable condition. pt has all belongings with him. pt received discharge instructions and stated he had no further questions for me.
--- NOTE | 2018-12-16 17:59 | DS ---
DATE OF DISCHARGE: 12/16/2018 DISCHARGE DIAGNOSES: 1. Rectal bleeding - stable. 2. Hemodynamically stable. 3. History of EGD, colonoscopy and capsule endoscopy at - records were pending. 4. Right lower quadrant pain with normal appendix on CAT scan. HOSPITAL COURSE: The patient is a male who can speak fluent Colombian admitted for mild rectal bleed. Initial melena and then later became streaks like what we see in hemorrhoidal bleed, co-managed with GI. Hemodynamically stable. Bleed abated on its own with conservative measures. Stable to go home with no change in medications. Continue PPI. He can follow up with since all of his records are there. CONSULTS PERFORMED: GI. PROCEDURES PERFORMED: None. Time spent for discharge less than 30 minutes. MARY KING MD DR: /nts JOB#: [id number] / [id number]
== END 2018-12-16 13:05 | disposition home or self-care (01) | DRG 379 ==
LOC: ER 15:29 → 4 NORTH 19:10
PROVIDERS: ADMIT Internal Medicine; ATTEND Internal Medicine
DX: K62.5 Hemorrhage of anus and rectum (principal); K52.9 Noninfective gastroenteritis and colitis, unspecified; K29.80 Duodenitis without bleeding; E78.5 Hyperlipidemia, unspecified; K21.9 Gastro-esophageal reflux disease without esophagitis; D64.9 Anemia, unspecified; D69.6 Thrombocytopenia, unspecified; K64.9 Unspecified hemorrhoids; Z88.8 Allergy status to other drugs, medicaments and biological substances
CPT/HCPCS: 36415; 74177; 74250; 80053; 81001; 82274; 85025; 85027; 85610; 85730; 86850; 86900; 86901; 87045; 87205; J3490; J7030; Q9967; 99285-25

== ENCOUNTER 2020-11-17 12:33 | Emergency (ER) | payer SELFPAY ==
[~2020-11-17] VITALS: Ht 172.7 cm; Wt 72.7 kg
[~2020-11-17 12:33] MED LIST changes: +MULT-445 PO; -MULT1TAB52 PO; -PANT40TA3 PO; +PANT40TA77 PO
[2020-11-17] MEDS ORDERED: IV NORMAL SALINE 1000ML BAG 1,000 ML IV ONE (12:45)
[2020-11-17 13:05] LABS: FECAL OB PT POSITIVE (NEG)
[2020-11-17 13:21] LABS: BASO % 0 % (0-3); EOS % 0 % (0-3); HEMOGLOBIN 15.2 g/dL (13.0-17.5); LYMPH % 25 % (24-48); MEAN CORPUSCULAR HEMOGLOBIN 30 pg (25-35); MEAN CORPUSCULAR HGB CONC 35 g/dL (31-37); MEAN CORPUSCULAR VOLUME 85 fL (79-100); MONO # 0.4 x10^3/uL (0.0-1.1); MONO % 11 % (0-9); NEUT # 2.4 x10^3/uL (1.8-7.7); NEUT % 64 % (31-73); PLATELET COUNT 101 x10^3/uL (140-400); RED BLOOD COUNT 5.15 x10^6/uL (4.30-5.70); RED CELL DISTRIBUTION WIDTH 13.5 % (11.5-14.5); WHITE BLOOD COUNT 3.8 x10^3/uL (4.0-11.0)
[2020-11-17 13:30] LABS: CALCIUM 8.7 mg/dL (8.5-10.1); CREATININE 0.8 mg/dL (0.7-1.3); POTASSIUM 4.3 mmol/L (3.5-5.1)
[2020-11-17 13:36] LABS: ALBUMIN 3.4 g/dL (3.4-5.0); ALBUMIN/GLOBULIN RATIO 1.1 (1.0-1.7); MAGNESIUM 2.1 mg/dL (1.8-2.4); TOTAL PROTEIN 6.4 g/dL (6.4-8.2)
[2020-11-17] MEDS ORDERED: CONTRAST GIVEN. MC PRN (13:45)
[2020-11-17] MEDS ORDERED: IOHEXOL 300 MG/ML 100ML VIAL. IV ONE (14:00)
--- NOTE | 2020-11-17 14:20 | RAD ---
EXAM: CT Abdomen and Pelvis with IV contrast CLINICAL HISTORY: LLQ abd pain, bloody stools COMPARISON: 12/13/2018 11/03/2017 TECHNIQUE: Helical CT of the abdomen and pelvis was performed following the administration of intrave nous contrast. Axial, coronal and sagittal reformatted images were generated. PQRS compliance statement - One or more of the following individualized dose reduction techniques wer e utilized for this study: 1. Automated exposure control 2. Adjustment of the mA and/or kV according to patient size 3. Use of iterative reconstruction technique FINDINGS: Lower Chest: Dependent opacities in the lower lobes likely atelectasis. 4 mm right lower lobe lung nodule (series 2 image 3) is stable 11/03/2017. Abdomen and Pelvis: Gallbladder is normal. No focal liver lesion. Spleen is unremarkable. Adrenal glands are normal. Panc reas is unremarkable. Symmetric nephrograms. No focal renal lesion. No hydronephrosis. No hydroureter . Bladder is moderately distended. Moderate colonic stool content is seen. No small or large bowel dilatation. Small bowel feces sign wi thin the distal small bowel No bowel obstruction. Motion artifact in the pelvis limits evaluation. Fat-containing inguinal hernias are seen. No abdominal or pelvic lymphadenopathy. No abdominal pelvic ascites. Bones: No aggressive osseous lesion is seen. IMPRESSION: 1. No bowel obstruction. Small bowel feces sign within the distal small bowel may represent slow tra nsit. 2. No abdominal or pelvic lymphadenopathy. 3. No abdominal or pelvic ascites. Electronically signed by: Elder Fermin MD (11/17/2020 2:18 PM) [facility]
[2020-11-17 14:54] LABS: BILIRUBIN,URINE NEGATIVE (NEG); CLARITY,URINE CLEAR; COLOR,URINE YELLOW; NITRITE,URINE NEGATIVE (NEG); PH,URINE 7.5 (<5.0-8.0); PROTEIN,URINE NEGATIVE (NEG-TRACE); UROBILINOGEN,URINE 0.2 mg/dL (0.2 mg/dL)
[2020-11-17 15:03] LABS: BACTERIA,URINE 0 /HPF (0-FEW); RBC,URINE 0 /HPF (0-2); WBC,URINE 0 /HPF (0-4)
--- NOTE | 2020-11-17 15:40 | ED.ADGEN ---
Past Medical History Past Medical History: Anemia, Constipation, GERD, GI Bleed Past Surgical History: Other Additional Past Surgical Histo: COLONOSCOPY Smoking Status: Never Smoker Alcohol Use: Sober Drug Use: None General Adult EDM: Chief Complaint: BLOODY STOOL HPI: HPI: Patient is a 40 year old male who presents to the emergency department with complaints of 2 bloody stools today. Patient reports that he has had problems with constipation and hemorrhoids in the past. He reports he had a similar episode of bloody stools 2 years ago. Patient denies any pain in his rectum. He complains of generalized lower abdominal pain. Patient denies any fever, cough, body aches, nausea, vomiting, or diarrhea. He reports that he has had very small hard stools for the last 2 days. The patient currently rates his pain a 4 out of 10 on the pain scale. [employer] ore tester line was used to speak with the patient as he is only [place] Islander-speaking. Review of Systems: Review of Systems: Complete ROS is negative unless otherwise noted in HPI. Current Medications: Current Medications Medications (Trade) Dose Ordered Sig/Fahad Start Time Stop Time Status Last Admin Dose Admin Info (CONTRAST GIVEN -- Rx MONITORING) 1 each PRN DAILY PRN 11/17/20 13:45 11/17/20 16:23 DC Iohexol (Omnipaque 300 Mg/ml) 75 ml 1X ONCE 11/17/20 14:00 11/17/20 14:02 DC 11/17/20 13:45 75 ML Sodium Chloride 1,000 ml @ 1,000 mls/hr 1X ONCE 11/17/20 12:45 11/17/20 13:44 DC 11/17/20 13:13 1,000 MLS/HR Allergies: Allergies: Allergies Coded Allergies Type Severity Reaction Last Updated Verified ciprofloxacin Allergy Intermediate 11/06/17 Yes Physical Exam: PE: See Above Constitutional: Well developed, well nourished, no acute distress, non-toxic appearance. [] HENT: Normocephalic, atraumatic, bilateral external ears normal, nose normal. [] Eyes: PERRLA, EOMI, conjunctiva normal, no discharge. [] Neck: Normal range of motion, no stridor. [] Cardiovascular:Heart rate regular rhythm Lungs & Thorax: Respirations even and unlabored, no retractions, no respiratory distress Abdomen: soft, LLQ TTP, no rebound tenderness, no guarding, no palpable mass Rectal Exam: Normal tone, No mass, Positive control Stool: Brown with bright red blood Guaiac: Positive Skin: Warm, dry, no erythema, no rash. [] Extremities: No cyanosis, ROM intact, no edema. [] Neurologic: Alert and oriented X 3, no focal deficits noted. [] Psychologic: Affect normal, judgement normal, mood normal. [] Current Patient Data: Labs: Laboratory Tests Test 11/17/20 12:48 11/17/20 13:10 11/17/20 14:40 Stool Occult Blood Positive (NEG) White Blood Count 3.8 x10^3/uL (4.0-11.0) L Red Blood Count 5.15 x10^6/uL (4.30-5.70) Hemoglobin 15.2 g/dL (13.0-17.5) Hematocrit 44.0 % (39.0-53.0) Mean Corpuscular Volume 85 fL (79-100) Mean Corpuscular Hemoglobin 30 pg (25-35) Mean Corpuscular Hemoglobin Concent 35 g/dL (31-37) Red Cell Distribution Width 13.5 % (11.5-14.5) Platelet Count 101 x10^3/uL (140-400) L Neutrophils (%) (Auto) 64 % (31-73) Lymphocytes (%) (Auto) 25 % (24-48) Monocytes (%) (Auto) 11 % (0-9) H Eosinophils (%) (Auto) 0 % (0-3) Basophils (%) (Auto) 0 % (0-3) Neutrophils # (Auto) 2.4 x10^3/uL (1.8-7.7) Lymphocytes # (Auto) 1.0 x10^3/uL (1.0-4.8) Monocytes # (Auto) 0.4 x10^3/uL (0.0-1.1) Eosinophils # (Auto) 0.0 x10^3/uL (0.0-0.7) Basophils # (Auto) 0.0 x10^3/uL (0.0-0.2) Sodium Level 141 mmol/L (136-145) Potassium Level 4.3 mmol/L (3.5-5.1) Chloride Level 104 mmol/L (98-107) Carbon Dioxide Level 29 mmol/L (21-32) Anion Gap 8 (6-14) Blood Urea Nitrogen 12 mg/dL (8-26) Creatinine 0.8 mg/dL (0.7-1.3) Estimated GFR (Cockcroft-Gault) 106.0 BUN/Creatinine Ratio 15 (6-20) Glucose Level 112 mg/dL (70-99) H Calcium Level 8.7 mg/dL (8.5-10.1) Magnesium Level 2.1 mg/dL (1.8-2.4) Total Bilirubin 1.0 mg/dL (0.2-1.0) Aspartate Amino Transferase (AST) 31 U/L (15-37) Alanine Aminotransferase (ALT) 73 U/L (16-63) H Alkaline Phosphatase 60 U/L (46-116) Total Protein 6.4 g/dL (6.4-8.2) Albumin 3.4 g/dL (3.4-5.0) Albumin/Globulin Ratio 1.1 (1.0-1.7) Lipase 78 U/L (73-393) Urine Collection Type Unknown Urine Color Yellow Urine Clarity Clear Urine pH 7.5 (<5.0-8.0) Urine Specific [place] 1.020 (1.000-1.030) Urine Protein Negative mg/dL (NEG-TRACE) Urine Glucose (UA) Negative mg/dL (NEG) Urine Ketones (Stick) Negative mg/dL (NEG) Urine Blood Negative (NEG) Urine Nitrite Negative (NEG) Urine Bilirubin Negative (NEG) Urine Urobilinogen Dipstick 0.2 mg/dL (0.2 mg/dL) Urine Leukocyte Esterase Negative (NEG) Urine RBC 0 /HPF (0-2) Urine WBC 0 /HPF (0-4) Urine Squamous Epithelial Cells None /LPF Urine Bacteria 0 /HPF (0-FEW) Laboratory Tests 11/17/20 13:10 Laboratory Tests 11/17/20 13:10 Vital Signs: Vital Signs Date Time Temp Pulse Resp B/P (MAP) Pulse Ox O2 Delivery O2 Flow Rate FiO2 11/17/20 16:00 74 19 131/74 (93) 98 Room Air 11/17/20 12:40 98.9 98.9 EKG: EKG: [] Heart Score: Risk Factors: Risk Factors: DM, Current or recent (<one month) smoker, HTN, HLP, family h istory of CAD, obesity. Risk Scores: Score 0 - 3: 2.5% MACE over next 6 weeks - Discharge Home Score 4 - 6: 20.3% MACE over next 6 weeks - Admit for Clinical Observation Score 7 - 10: 72.7% MACE over next 6 weeks - Early Invasive Strategies Radiology/Procedures: Radiology/Procedures: PROCEDURE: CT ABD PELV W/ IV CONTRST ONLY EXAM: CT Abdomen and Pelvis with IV contrast CLINICAL HISTORY: LLQ abd pain, bloody stools COMPARISON: 12/13/2018 11/03/2017 TECHNIQUE: Helical CT of the abdomen and pelvis was performed following the administration of intravenous contrast. Axial, coronal and sagittal reformatted images were generated. PQRS compliance statement - One or more of the following individualized dose reduction techniques were utilized for this study: 1. Automated exposure control 2. Adjustment of the mA and/or kV according to patient size 3. Use of iterative reconstruction technique FINDINGS: Lower Chest: Dependent opacities in the lower lobes likely atelectasis. 4 mm right lower lobe lung nodule (series 2 image 3) is stable 11/03/2017. Abdomen and Pelvis: Gallbladder is normal. No focal liver lesion. Spleen is unremarkable. Adrenal glands are normal. Pancreas is unremarkable. Symmetric nephrograms. No focal renal lesion. No hydronephrosis. No hydroureter. Bladder is moderately distended. Moderate colonic stool content is seen. No small or large bowel dilatation. Small bowel feces sign within the distal small bowel No bowel obstruction. Motion artifact in the pelvis limits evaluation. Fat-containing inguinal hernias are seen. No abdominal or pelvic lymphadenopathy. No abdominal pelvic ascites. Bones: No aggressive osseous lesion is seen. IMPRESSION: 1. No bowel obstruction. Small bowel feces sign within the distal small bowel may represent slow transit. 2. No abdominal or pelvic lymphadenopathy. 3. No abdominal or pelvic ascites. Electronically signed by: Elder Fermin MD (11/17/2020 2:18 PM) [facility][] Course & Med Decision Making: Course & Med Decision Making Pertinent Labs and Imaging studies reviewed. (See chart for details) Patient presented to the emergency department for rectal bleeding Work-up included labs, CT, and rectal exam CBC revealed WBC of 3.8; CMP revealed glucose of 112, ALT of 73 otherwise unremarkable, lipase was not elevated; UA is unremarkable, stool is positive for blood CT abdomen pelvis revealed no bowel obstruction no abdominal or pelvic lymphadenopathy, no abdominal or pelvic ascites, no acute findings. There was a moderate stool content in the colon I encouraged the patient to take his MiraLAX twice daily for 3 days then once a day until his bowels are regular. Increase fluids and follow-up with primary care doctor. I provided patient with Dr. Malone's information for GI follow- up. I encouraged him to return to the ER if symptoms worsen. Patient verbalized an understanding of home care, medications, follow-up, and return to ED instructions and was in agreement with the plan of care. Dragon Disclaimer: Dragon Disclaimer: This electronic medical record was generated, in whole or in part, using a voice recognition dictation system. Departure Departure Impression: Primary Impression: Blood in the stool Additional Impression: Constipation Disposition: 01 DC HOME SELF CARE/HOMELESS Condition: STABLE Referrals: SKYE MALONE MD Patient Instructions: Bloody Stools, [id number], Constipation, Adult, [id number] Additional Instructions: Take 1 capful of your Miralax in 8 ox of juice or water twice a day x3 days, then take 1 capful daily until bowel movements are regular. Follow up with Dr. Malone for further evaluation of blood in your stool, return to the ER if symptoms worsen. Problem Qualifiers Additional Impression: Constipation Constipation type: unspecified constipation type Qualified Codes: K59.00 - Constipation, unspecified ARNEL HALE APRN Nov 17, 2020 15:39
[2020-11-17 16:00] VITALS: BP 131/74
== END 2020-11-17 16:15 | disposition home or self-care (01) ==
LOC: ER 12:33
DX: K92.1 Melena (principal); K59.00 Constipation, unspecified; R10.84 Generalized abdominal pain; K21.9 Gastro-esophageal reflux disease without esophagitis; K92.2 Gastrointestinal hemorrhage, unspecified; Z98.890 Other specified postprocedural states; Z88.1 Allergy status to other antibiotic agents
CPT/HCPCS: 36415; 74177; 80053; 81001; 82274; 83690; 83735; 85025; 96360; 99285; J7030; Q9967